=== PATIENT | male | born 1935 | race Caucasian/White ===

== ENCOUNTER 2017-12-07 08:00 | Outpatient (CLI) | payer MEDICARE, OTHER ==
[2017-12-07 17:35] LABS: BASOPHILS # (AUTO) 0.1 10^3/uL (0.0-0.1); BASOPHILS % (AUTO) 0.8 %; EOSINOPHILS # (AUTO) 0.2 10^3/uL (0.0-0.7); EOSINOPHILS % (AUTO) 2.8 %; HGB - HEMOGLOBIN 14.7 g/dL (14.0-18.0); LYMPHOCYTES # (AUTO) 1.5 10^3/uL (1.5-3.5); MEAN CORPUSCULAR HEMOGLOBIN 33.9 pg (27.0-31.0); MEAN CORPUSCULAR HGB CONC 33.3 g/dL (32.0-36.0); MEAN CORPUSCULAR VOLUME 101.7 fL (80.0-94.0); MONOCYTES # (AUTO) 0.5 10^3/uL (0.0-1.0); MONOCYTES % (AUTO) 7.1 %; NEUTROPHILS # (AUTO) 5.2 10^3/uL (1.5-6.6); NEUTROPHILS % (AUTO) 69.3 %; PLT - PLATELET COUNT 186 10^3/uL (130-450); RED BLOOD COUNT 4.35 10^6/uL (4.70-6.10); RED CELL DISTRIBUTION WIDTH 13.6 % (12.0-15.0); WHITE BLOOD COUNT 7.5 x10^3/uL (4.8-10.8)
[2017-12-07 18:02] LABS: ALBUMIN/GLOBULIN RATIO 1.3 (1.0-2.2); CALCIUM 8.9 mg/dL (8.5-10.3); CREATININE 0.6 mg/dL (0.6-1.2)
== END 2017-12-07 08:01 | disposition home or self-care (01) ==
LOC: LAB.F 08:00
PROVIDERS: ATTEND Specialist
DX: I10 Essential (primary) hypertension (principal); E78.00 Pure hypercholesterolemia, unspecified; E03.9 Hypothyroidism, unspecified
CPT/HCPCS: 36415; 80053; 84443; 85025

== ENCOUNTER 2018-08-02 11:46 | Emergency (ER) | payer MEDICARE, OTHER ==
--- NOTE | 2018-08-02 12:44 | XRAY Report ---
Reason: cough Procedure Date: 08/02/2018 Accession Number: [id number] / [id number] Procedure: XR - Chest 2 View X-Ray CPT Code: 62155 FULL RESULT: EXAM: CHEST RADIOGRAPHY EXAM DATE: 08/02/2018 12:32 PM. CLINICAL HISTORY: Cough, congestion. Fatigue. COMPARISON: None. TECHNIQUE: 2 views. FINDINGS: Lungs/Pleura: Extensive bilateral bronchial thickening. No dense consolidation. No pleural effusions. No pneumothorax. Mediastinum: Heart is enlarged. Aorta is mildly tortuous. Aortic atherosclerosis. Other: Degenerative changes of the thoracic spine and both shoulders. IMPRESSION: 1. Extensive bilateral bronchial thickening typically seen with bronchitis. No dense consolidation. RADIA
[2018-08-02 13:17] LABS: BASOPHILS % (AUTO) 0.5 %; EOSINOPHILS % (AUTO) 0.3 %; HGB - HEMOGLOBIN 13.7 g/dL (14.0-18.0); LYMPHOCYTES # (AUTO) 1.1 10^3/uL (1.5-3.5); LYMPHOCYTES % (AUTO) 15.1 %; MEAN CORPUSCULAR HEMOGLOBIN 34.5 pg (27.0-31.0); MEAN CORPUSCULAR HGB CONC 35.3 g/dL (32.0-36.0); MEAN CORPUSCULAR VOLUME 97.9 fL (80.0-94.0); MEAN PLATELET VOLUME 8.4 fL (7.4-11.4); MONOCYTES # (AUTO) 0.7 10^3/uL (0.0-1.0); MONOCYTES % (AUTO) 10.1 %; NEUTROPHILS # (AUTO) 5.4 10^3/uL (1.5-6.6); PLT - PLATELET COUNT 204 10^3/uL (130-450); RED BLOOD COUNT 3.97 10^6/uL (4.70-6.10); RED CELL DISTRIBUTION WIDTH 13.6 % (12.0-15.0); WHITE BLOOD COUNT 7.3 x10^3/uL (4.8-10.8)
[2018-08-02 13:29] LABS: ALBUMIN 3.7 g/dL (3.2-5.5); ALBUMIN/GLOBULIN RATIO 1.2 (1.0-2.2); BILIRUBIN,TOTAL 0.7 mg/dL (0.2-1.0); CALCIUM 8.5 mg/dL (8.5-10.3); CREATININE 0.4 mg/dL (0.6-1.2); TOTAL PROTEIN 6.8 g/dL (6.7-8.2)
[2018-08-02 14:25] VITALS: BP 138/70
[2018-08-02 15:34] LABS: BILIRUBIN,URINE NEGATIVE (NEGATIVE); GLUCOSE, URINE (UA) NEGATIVE (NEGATIVE); KETONES,URINE (UA) NEGATIVE (NEGATIVE); LEUKOCYTE ESTERASE, URINE NEGATIVE (NEGATIVE); NITRITE,URINE NEGATIVE (NEGATIVE); OCCULT BLOOD,URINE NEGATIVE (NEGATIVE); PH,URINE 6.5 PH (5.0-7.5); PROTEIN,URINE NEGATIVE (NEGATIVE); UROBILINOGEN,URINE 0.2 (NORMAL) E.U./dL (NORMAL)
[2018-08-02 15:36] LABS: CLARITY,URINE CLEAR (CLEAR)
[2018-08-02] MEDS ORDERED: IPRATROPIUM/ALBUTEROL 3 ML NEB INH STA (15:40)
[2018-08-02] MEDS ORDERED: DEXAMETHASONE 10 MG/ML VIAL PO STA (15:40)
[2018-08-02] MEDS ORDERED: BENZONATATE 100 MG CAPSULE PO STA (15:40)
--- NOTE | 2018-08-02 15:54 | ED Physician Documentation ---
PD HPI URI - Stated complaint Stated Complaint: CONGESTION/DIZZY/DISORIENTED - Chief complaint Chief Complaint: Resp - History obtained from History obtained from: Patient, Family - History of Present Illness Timing - onset: How many weeks ago (1) Timing duration: Weeks (1) Timing details: Gradual onset Pain level max: 3 Pain level now: 3 Associated symptoms: Chills, Nasal congestion, Rhinorrhea, Dry cough, Dyspnea. No: Fever, Hemoptysis Contributing factors: Sick contact, COPD / asthma. No: Immunocompromised, Unimmunized Improves by: Rest Worsened by: Activity, Breathing Recently seen: Not recently seen Review of Systems Constitutional: denies: Fever Respiratory: reports: Cough GI: denies: Nausea, Vomiting Skin: denies: Rash Musculoskeletal: denies: Neck pain, Back pain Neurologic: denies: Headache PD PAST MEDICAL HISTORY - Past Medical History Cardiovascular: High cholesterol Respiratory: Asthma Neuro: None Endocrine/Autoimmune: HyPOthyroidism : Retention HEENT: None Musculoskeletal: Gout - Past Surgical History Past Surgical History: No HEENT: Cataracts - Present Medications Home Medications: Ambulatory Orders Medication Instructions Recorded Confirmed Albuterol Sulfate [Proair 90 mcg IH BID 08/02/18 08/02/18 Respiclick] Allopurinol 300 mg PO DAILY 08/02/18 08/02/18 Atorvastatin Calcium 20 mg PO DAILY 08/02/18 08/02/18 Benzonatate [Tessalon Perle] 100 - 200 mg PO TID PRN #30 capsule 08/02/18 Levothyroxine [Synthroid] 1 tab PO DAILY 08/02/18 08/02/18 Metoprolol Tartrate 1 tab PO DAILY 08/02/18 08/02/18 Rivaroxaban [Xarelto] 1 each PO DAILY 08/02/18 08/02/18 Sertraline [Zoloft] 50 mg PO DAILY 08/02/18 08/02/18 Sildenafil Citrate [Viagra] 100 mg PO DAILY 08/02/18 08/02/18 Tamsulosin [Flomax] 0.4 mg PO ONCE 08/02/18 08/02/18 diazePAM [Diazepam] 5 mg PO DAILY 08/02/18 08/02/18 predniSONE [Deltasone] 10 mg PO [id number] #42 tab 08/02/18 - Allergies Allergies/Adverse Reactions: Allergies Allergy/AdvReac Type Severity Reaction Status Date / Time No Known Drug Allergies Allergy Verified 08/02/18 12:10 - Social History Does the pt smoke?: No Smoking Status: Never smoker - Immunizations Immunizations are current?: Yes PD ED PE NORMAL - Vitals Vital signs reviewed: Yes - General General: Alert and oriented X 3, No acute distress - HEENT HEENT: Ears normal, Moist mucous membranes, Pharynx benign - Neck Neck: Supple, no meningeal sign - Cardiac Cardiac: RRR - Respiratory Respiratory: No respiratory distress, Other (Diffuse wheezing and rhonchi bilaterally) - Abdomen Abdomen: Soft, Non tender, Non distended - Back Back: No spinal TTP - Derm Derm: Warm and dry, No rash - Extremities Extremities: No edema, No calf tenderness / cord - Neuro Neuro: Alert and oriented X 3 - Psych Psych: Normal mood, Normal affect Results - Vitals Vitals: Vital Signs - 24 hr 08/02/18 08/02/18 08/02/18 12:08 14:23 15:53 Temperature 36.5 C 36.5 C Heart Rate 70 60 70 Respiratory 20 18 18 Rate Blood Pressure 150/68 H 138/70 H O2 Saturation 100 98 Oxygen O2 Source Room air - Labs Labs: Laboratory Tests 08/02/18 08/02/18 08/02/18 13:06 13:06 15:20 WBC 7.3 RBC 3.97 L Hgb 13.7 L Hct 38.9 L MCV 97.9 H MCH 34.5 H MCHC 35.3 RDW 13.6 Plt Count 204 MPV 8.4 Neut # (Auto) 5.4 Lymph # (Auto) 1.1 L [place] # (Auto) 0.7 Eos # (Auto) 0.0 Baso # (Auto) 0.0 Absolute Nucleated RBC 0.00 Nucleated RBC % 0.0 Sodium 131 L Potassium 3.4 L Chloride 98 L Carbon Dioxide 26 Anion Gap 7.0 BUN 11 Creatinine 0.4 L Estimated GFR (MDRD) 206 Glucose 120 H Calcium 8.5 Total Bilirubin 0.7 AST 31 ALT 31 Alkaline Phosphatase 71 Total Protein 6.8 Albumin 3.7 Globulin 3.1 Albumin/Globulin Ratio 1.2 Lipase 57 H Urine Color YELLOW Urine Clarity CLEAR Urine pH 6.5 Ur Specific [place] 1.010 Urine Protein NEGATIVE Urine Glucose (UA) NEGATIVE Urine Ketones NEGATIVE Urine Occult Blood NEGATIVE Urine Nitrite NEGATIVE Urine Bilirubin NEGATIVE Urine Urobilinogen 0.2 (NORMAL) Ur Leukocyte Esterase NEGATIVE Ur Microscopic Review NOT INDICATED Urine Culture Comments NOT INDICATED - Rads (name of study) cxr Radiology: Prelim report reviewed, EMP read contemporaneously, See rad report (Extensive bilateral bronchial thickening typically seen with bronchitis. No dense consolidation. ) PD MEDICAL DECISION MAKING - ED course Complexity details: reviewed results, re-evaluated patient, considered differential, d/w patient, d/w family ED course: 83-year-old male with what appears to be a viral upper respiratory infection. He is well-appearing, nontoxic. Afebrile. We will treat with nebulizer and steroids for home. He did take an old Z-Jameel, but this did not change his symptoms. Possible influenza? No hypoxia. No respiratory distress. Patient and family counseled regarding signs and symptoms for which I believe and urgent re-evaluation would be necessary. Patient with good understanding of and agreement to plan and is comfortable going home at this time This document was made in part using voice recognition software. While efforts are made to proofread this document, sound alike and grammatical errors may occur. Departure - Departure Disposition: 01 Home, Self Care Clinical Impression: Upper respiratory tract infection Qualifiers: URI type: unspecified viral URI Qualified Code(s): J06.9 - Acute upper respira tory infection, unspecified Condition: Good Instructions: ED URI Viral W Wheezing Follow-Up: ANASTACIA GAMEZ [Primary Care Provider] - Within 1 week Prescriptions: Benzonatate [Tessalon Perle] 100 - 200 mg PO TID PRN #30 capsule PRN Reason: Cough predniSONE [Deltasone] 10 mg PO [id number] #42 tab Comments: Drink plenty of fluids at home. Return if you worsen. You need to use her inhaler likely every 3-4 hours along with the spacer attached. Rest over the next few days. There is no pneumonia on your chest x-ray today Discharge Date/Time: 08/02/18 16:35
== END 2018-08-02 16:35 | disposition home or self-care (01) ==
LOC: ED 11:46
DX: J06.9 Acute upper respiratory infection, unspecified (principal); R06.2 Wheezing; I10 Essential (primary) hypertension; E78.00 Pure hypercholesterolemia, unspecified
CPT/HCPCS: 36415; 71046; 80053; 81003; 83690; 85025; 94640; 99283; A9270; 81001; 87086

== ENCOUNTER 2018-10-02 14:21 | Emergency (ER) | payer MEDICARE, OTHER ==
[2018-10-02 14:30] VITALS: BP 157/77
[2018-10-02 14:45] LABS: BILIRUBIN,URINE NEGATIVE (NEGATIVE); GLUCOSE, URINE (UA) NEGATIVE (NEGATIVE); KETONES,URINE (UA) NEGATIVE (NEGATIVE); LEUKOCYTE ESTERASE, URINE SMALL (NEGATIVE); NITRITE,URINE NEGATIVE (NEGATIVE); OCCULT BLOOD,URINE LARGE (NEGATIVE); PROTEIN,URINE 100 mg/dL (NEGATIVE); UROBILINOGEN,URINE 0.2 (NORMAL) E.U./dL (NORMAL)
[2018-10-02 14:46] LABS: CLARITY,URINE CLOUDY (CLEAR)
--- NOTE | 2018-10-02 14:48 | ED Physician Documentation ---
PD HPI MALE - Stated complaint Stated Complaint: MALE - Chief complaint Chief Complaint: Abd Pain - History obtained from History obtained from: Patient - History of Present Illness Timing - onset: Other (3 mos urinary urgency now with 3 days of dysuria and pink tinged with small clot this AM. hAS h/o BPH on flomax.) Review of Systems Constitutional: denies: Fever, Chills, Myalgias Throat: reports: Reviewed and negative Cardiac: reports: Reviewed and negative Respiratory: reports: Reviewed and negative PD PAST MEDICAL HISTORY - Past Medical History Cardiovascular: High cholesterol Respiratory: Asthma Neuro: None Endocrine/Autoimmune: HyPOthyroidism : Retention HEENT: None Musculoskeletal: Gout - Past Surgical History Past Surgical History: No HEENT: Cataracts - Present Medications Home Medications: Ambulatory Orders Medication Instructions Recorded Confirmed Albuterol Sulfate [Proair 90 mcg IH BID 08/02/18 08/02/18 Respiclick] Allopurinol 300 mg PO DAILY 08/02/18 08/02/18 Atorvastatin Calcium 20 mg PO DAILY 08/02/18 08/02/18 Benzonatate [Tessalon Perle] 100 - 200 mg PO TID PRN #30 capsule 08/02/18 Levothyroxine [Synthroid] 1 tab PO DAILY 08/02/18 08/02/18 Metoprolol Tartrate 1 tab PO DAILY 08/02/18 08/02/18 Rivaroxaban [Xarelto] 1 each PO DAILY 08/02/18 08/02/18 Sertraline [Zoloft] 50 mg PO DAILY 08/02/18 08/02/18 Sildenafil Citrate [Viagra] 100 mg PO DAILY 08/02/18 08/02/18 Tamsulosin [Flomax] 0.4 mg PO ONCE 08/02/18 08/02/18 diazePAM [Diazepam] 5 mg PO DAILY 08/02/18 08/02/18 predniSONE [Deltasone] 10 mg PO [id number] #42 tab 08/02/18 Ciprofloxacin HCl [Cipro] 500 mg PO BID #20 tablet 10/02/18 - Allergies Allergies/Adverse Reactions: Allergies Allergy/AdvReac Type Severity Reaction Status Date / Time No Known Drug Allergies Allergy Verified 10/02/18 14:30 - Social History Does the pt smoke?: No Smoking Status: Never smoker - Immunizations Immunizations are current?: Yes PD ED PE NORMAL - Vitals Vital signs reviewed: Yes - General General: Alert and oriented X 3, No acute distress - Male Male : Other (Bladder scan done at bedside after urination, 40 mL's.) - Back Back: No CVA TTP, No spinal TTP - Derm Derm: Normal color, Warm and dry - Extremities Extremities: No edema, No calf tenderness / cord Results - Vitals Vitals: Vital Signs - 24 hr 10/02/18 14:28 Temperature 36.3 C L Heart Rate 54 L Respiratory 10 L Rate Blood Pressure 157/77 H O2 Saturation 97 Oxygen O2 Source Room air - Labs Labs: Laboratory Tests 10/02/18 14:40 Urine Color YELLOW Urine Clarity CLOUDY Urine pH 6.0 Ur Specific [place] 1.010 Urine Protein 100 H Urine Glucose (UA) NEGATIVE Urine Ketones NEGATIVE Urine Occult Blood LARGE H Urine Nitrite NEGATIVE Urine Bilirubin NEGATIVE Urine Urobilinogen 0.2 (NORMAL) Ur Leukocyte Esterase SMALL H Urine RBC TNTC H Urine WBC >25 H Ur Squamous Epith Cells NONE SEEN Urine Bacteria Rare Ur Microscopic Review INDICATED Urine Culture Comments INDICATED PD MEDICAL DECISION MAKING - ED course ED course: 83-year-old gentleman with history of BPH presents with symptoms of cystitis confirmed on urinalysis. Bladder scan denotes no need for Child[place] catheter at this point, he has an insignificant postvoid residual. Departure - Departure Disposition: 01 Home, Self Care Clinical Impression: Cystitis Condition: Good Record reviewed to determine appropriate education?: Yes Instructions: ED UTI Cystitis Male Prescriptions: Ciprofloxacin HCl [Cipro] 500 mg PO BID #20 tablet Comments: We will culture your urine, the results should be done in 48-72 hours. If an a ntibiotic change is necessary we will call you. Return if worse in the meantime, especially if you develop increasing flank pain, fevers, or cannot keep down the medication. Follow-up with your urologist in about a week as scheduled.
[2018-10-02 14:55] LABS: BACTERIA,URINE Rare /HPF (None Seen); RBC,URINE TNTC /HPF (0-5); SQUAMOUS EPITHELIAL CELL,UR NONE SEEN (<= Few)
== END 2018-10-02 15:10 | disposition home or self-care (01) ==
LOC: ED 14:21
DX: N30.90 Cystitis, unspecified without hematuria (principal); E03.9 Hypothyroidism, unspecified; E78.00 Pure hypercholesterolemia, unspecified
CPT/HCPCS: 81001; 81003; 87077; 87086; 87181; 99283

== ENCOUNTER 2019-08-03 12:03 | Emergency (ER) | payer MEDICARE, OTHER ==
[2019-08-03 12:18] VITALS: BP 134/68
[2019-08-03] MEDS ORDERED: ALBUTEROL NEB 2.5 MG/3 ML INH STA (12:29)
--- NOTE | 2019-08-03 12:32 | ED Physician Documentation ---
PD HPI HEENT - Stated complaint Stated Complaint: FO IN THROAT/COUGH - Chief complaint Chief Complaint: Resp - History obtained from History obtained from: Patient (He has had a minimally productive cough worse at night for about 3 to 4 weeks, mild shortness of breath with it. No fevers. Then he coughed so hard this morning that he thinks he inhaled his lower dental bridge and feels like it stuck in his throat.) Review of Systems Constitutional: denies: Fever, Chills Throat: denies: Dental pain / toothache, Sore throat Cardiac: denies: Chest pain / pressure, Palpitations Respiratory: reports: Cough. denies: Dyspnea PD PAST MEDICAL HISTORY - Past Medical History Cardiovascular: High cholesterol Respiratory: Asthma Neuro: None Endocrine/Autoimmune: HyPOthyroidism : Retention HEENT: None Musculoskeletal: Gout - Past Surgical History Past Surgical History: No HEENT: Cataracts - Present Medications Home Medications: Ambulatory Orders Medication Instructions Recorded Confirmed Albuterol Sulfate [Proair 90 mcg IH BID 08/02/18 08/02/18 Respiclick] Atorvastatin Calcium 20 mg PO DAILY 08/02/18 08/02/18 Benzonatate [Tessalon Perle] 100 - 200 mg PO TID PRN #30 capsule 08/02/18 Levothyroxine [Synthroid] 1 tab PO DAILY 08/02/18 08/02/18 Metoprolol Tartrate 1 tab PO DAILY 08/02/18 08/02/18 Rivaroxaban [Xarelto] 1 each PO DAILY 08/02/18 08/02/18 Sertraline [Zoloft] 50 mg PO DAILY 08/02/18 08/02/18 Sildenafil Citrate [Viagra] 100 mg PO DAILY 08/02/18 08/02/18 Tamsulosin [Flomax] 0.4 mg PO ONCE 08/02/18 08/02/18 allopurinoL [Allopurinol] 300 mg PO DAILY 08/02/18 08/02/18 diazePAM [Diazepam] 5 mg PO DAILY 08/02/18 08/02/18 predniSONE [Deltasone] 10 mg PO [id number] #42 tab 08/02/18 Ciprofloxacin HCl [Cipro] 500 mg PO BID #20 tablet 10/02/18 Albuterol Sulf [Ventolin Hfa 1 - 2 puffs INH Q4HR PRN #1 inhaler 08/03/19 Inhaler] Azithromycin [Zithromax] 1 tab PO DAILY #6 tablet 08/03/19 - Allergies Allergies/Adverse Reactions: Allergies Allergy/AdvReac Type Severity Reaction Status Date / Time No Known Drug Allergies Allergy Verified 08/03/19 12:18 - Social History Does the pt smoke?: No Smoking Status: Never smoker - Immunizations Immunizations are current?: Yes PD ED PE NORMAL - Vitals Vital signs reviewed: Yes - General General: Alert and oriented X 3, No acute distress - HEENT HEENT: Pharynx benign (No visible foreign body) - Neck Neck: Supple, no meningeal sign, No bony TTP - Cardiac Cardiac: RRR, No murmur - Respiratory Respiratory: No respiratory distress, Other (Rhonchorous and wheezy throughout) - Abdomen Abdomen: Non tender - Derm Derm: No rash - Neuro Neuro: Alert and oriented X 3, Normal speech Results - Vitals Vitals: Vital Signs - 24 hr 08/03/19 08/03/19 08/03/19 12:15 12:18 12:44 Temperature 36.2 C L Heart Rate 87 87 74 Respiratory 18 18 18 Rate Blood Pressure 134/68 H 134/68 H O2 Saturation 99 99 Oxygen O2 Source Room air PD MEDICAL DECISION MAKING - ED course ED course: 84-year-old gentleman with bronchitis and potentially an inhaled dental bridge in his throat. Nothing that matches that on x-ray but he was persistent that he could not eat or drink or swallow and as such I arranged to have him sent up to [facility] accepted by Kimberly Feng and I also arranged for Dr. Self to see him when he gets there. They will just call Dr. Self in to perform laryngoscopy. Departure - Departure Disposition: 02 Transfer Acute Care Hosp Clinical Impression: Bronchitis, Foreign body sensation in throat Condition: Good Record reviewed to determine appropriate education?: Yes Instructions: ED Bronchitis Asthmatic Prescriptions: Albuterol Sulf [Ventolin Hfa Inhaler] 1 - 2 puffs INH Q4HR PRN #1 inhaler PRN Reason: Shortness Of Air/Wheezing Azithromycin [Zithromax] 1 tab PO DAILY #6 tablet Comments: The x-ray really does not show anything consistent with a dental bridge. The radiologist made note that there might be a 2 mm foreign body but this is too small to match what you are describing. The radiologist also felt that it could just be normal calcification too. If you still have symptoms in a few days you should follow-up with an ENT for consideration of nasolaryngoscopy. The closest is in [facility], the phone number is [phone].
--- NOTE | 2019-08-03 13:24 | XRAY Report ---
Reason: poss swallowed FB Procedure Date: 08/03/2019 Accession Number: [id number] / [id number] Procedure: XR - Neck Soft Tissue CPT Code: Final Report FULL RESULT: EXAM: SOFT TISSUE NECK RADIOGRAPHY EXAM DATE: 08/03/2019 01:14 PM. CLINICAL HISTORY: Poss swallowed FB. COMPARISONS: None. TECHNIQUE: 2 views. FINDINGS: Soft Tissues: A tiny 2 mm radiopaque density in prevertebral soft tissues at C7 level, posterior to the trachea. Likely cartilaginous calcification, however a tiny foreign body to be considered in appropriate setting. No prevertebral soft tissue swelling. The epiglottis and aryepiglottic folds are unremarkable. No tonsillar or adenoidal enlargement. No radiopaque foreign body. Regional Skeleton: Unremarkable for age. Other: The visualized lung apices are clear. IMPRESSION: A tiny 2 mm radiopaque density in prevertebral soft tissues at C7 level, posterior to trachea. Likely cartilaginous calcification, however a tiny foreign body to be considered in appropriate setting. RADIA
--- NOTE | 2019-08-03 13:25 | XRAY Report ---
Reason: cough, poss swallowed fb Procedure Date: 08/03/2019 Accession Number: [id number] / [id number] Procedure: XR - Chest 2 View X-Ray CPT Code: 61287 Final Report FULL RESULT: EXAM: CHEST RADIOGRAPHY EXAM DATE: 08/03/2019 01:14 PM. CLINICAL HISTORY: Cough, poss swallowed fb. COMPARISON: CHEST 2 VIEW 08/02/2018 12:24 PM. TECHNIQUE: 2 views. FINDINGS: Lungs/Pleura: No focal opacities evident. No pleural effusion. No pneumothorax. Normal volumes. Mediastinum: Heart and mediastinal contours are unremarkable. Other: None. IMPRESSION: No radiopaque foreign body in the field. Bibasilar unchanged interstitial opacities are likely age-related. RADIA
== END 2019-08-03 14:31 | disposition short-term general hospital (02) ==
LOC: ED 12:03
DX: J40 Bronchitis, not specified as acute or chronic (principal); R09.89 Other specified symptoms and signs involving the circulatory and respiratory systems
CPT/HCPCS: 70360; 71046; 94640; 99284; 99285

== ENCOUNTER 2021-08-25 11:36 | Outpatient (CLI) | payer MEDICARE, OTHER ==
[2021-08-25 15:27] LABS: CREATININE 0.7 mg/dL (0.6-1.2)
== END 2021-08-25 11:37 | disposition home or self-care (01) ==
LOC: LAB.S 11:36
PROVIDERS: ATTEND Nurse Practitioner Family
DX: I48.20 Chronic atrial fibrillation, unspecified (principal)
CPT/HCPCS: 36415; 82565

== ENCOUNTER 2021-09-16 12:10 | Outpatient (CLI) | payer MEDICARE, OTHER ==
[2021-09-16 15:15] LABS: ALBUMIN 4.8 g/dL (3.2-5.5); ALBUMIN/GLOBULIN RATIO 1.8 (1.0-2.2); ALKALINE PHOSPHATASE 57 IU/L (42-121); ALT ALANINE AMINOTRANSFERASE 25 IU/L (10-60); AST ASPARTATE AMINOTRANSFERASE 24 IU/L (10-42); BUN - BLOOD UREA NITROGEN 13 mg/dL (6-20); CALCIUM 9.4 mg/dL (8.5-10.3); CARBON DIOXIDE - CO2 26 mmol/L (21-32); CHLORIDE 102 mmol/L (101-111); CHOL/HDL RATIO 2.6 (<5.0); CHOLESTEROL 177 mg/dL; CREATININE 0.6 mg/dL (0.6-1.2); GFR - MDRD 128 (>89); GLUCOSE 118 mg/dL (70-100); HDL CHOLESTEROL 67 mg/dL; LDL CHOLESTEROL,CALCULATED 97 mg/dL; LDL/HDL RATIO 1.4 (<3.6); POTASSIUM 4.5 mmol/L (3.5-5.0); SODIUM 137 mmol/L (135-145); TOTAL PROTEIN 7.5 g/dL (6.7-8.2); TRIGLYCERIDES 64 mg/dL; VLDL CHOLESTEROL 13 mg/dL
[2021-09-16 15:22] LABS: BASOPHILS % (AUTO) 0.4 %; EOSINOPHILS # (AUTO) 0.2 10^3/uL (0.0-0.7); EOSINOPHILS % (AUTO) 1.6 %; HCT - HEMATOCRIT 45.3 % (42.0-52.0); HGB - HEMOGLOBIN 15.4 g/dL (14.0-18.0); LYMPHOCYTES # (AUTO) 1.7 10^3/uL (1.5-3.5); MEAN PLATELET VOLUME 11.9 fL (7.4-11.4); MONOCYTES # (AUTO) 0.6 10^3/uL (0.0-1.0); MONOCYTES % (AUTO) 5.9 %; NEUTROPHILS # (AUTO) 6.9 10^3/uL (1.5-6.6); NEUTROPHILS % (AUTO) 73.8 %; PLT - PLATELET COUNT 182 10^3/uL (130-450); RED BLOOD COUNT 4.53 10^6/uL (4.70-6.10); RED CELL DISTRIBUTION WIDTH 12.3 % (12.0-15.0); WHITE BLOOD COUNT 9.3 x10^3/uL (4.8-10.8)
== END 2021-09-16 12:11 | disposition home or self-care (01) ==
LOC: LAB.S 12:10
PROVIDERS: ATTEND Student in an Organized Health Care Education/Training Program
DX: Z79.899 Other long term (current) drug therapy (principal)
CPT/HCPCS: 36415; 80053; 80061; 83721; 84443; 85025

== ENCOUNTER 2022-03-15 13:40 | Outpatient (CLI) | payer MEDICARE, OTHER ==
[2022-03-15 19:54] LABS: CREATININE 0.6 mg/dL (0.6-1.2)
== END 2022-03-15 13:41 | disposition home or self-care (01) ==
LOC: LAB.S 13:40
PROVIDERS: ATTEND Nurse Practitioner Family
DX: I48.20 Chronic atrial fibrillation, unspecified (principal)
CPT/HCPCS: 36415; 82565

== ENCOUNTER 2023-08-10 15:01 | Outpatient (CLI) | payer MEDICARE, OTHER ==
[2023-08-10 20:13] LABS: BASOPHILS # (AUTO) 0.1 10^3/uL (0.0-0.1); BASOPHILS % (AUTO) 0.5 %; EOSINOPHILS # (AUTO) 0.1 10^3/uL (0.0-0.7); EOSINOPHILS % (AUTO) 0.9 %; HCT - HEMATOCRIT 41.9 % (42.0-52.0); HGB - HEMOGLOBIN 13.4 g/dL (14.0-18.0); LYMPHOCYTES # (AUTO) 1.5 10^3/uL (1.5-3.5); LYMPHOCYTES % (AUTO) 16.3 %; MEAN CORPUSCULAR HEMOGLOBIN 32.5 pg (27.0-31.0); MEAN CORPUSCULAR VOLUME 101.7 fL (80.0-94.0); MEAN PLATELET VOLUME 11.6 fL (7.4-11.4); MONOCYTES # (AUTO) 0.6 10^3/uL (0.0-1.0); MONOCYTES % (AUTO) 6.4 %; NEUTROPHILS # (AUTO) 6.9 10^3/uL (1.5-6.6); NEUTROPHILS % (AUTO) 75.7 %; PLT - PLATELET COUNT 201 10^3/uL (130-450); RED BLOOD COUNT 4.12 10^6/uL (4.70-6.10); RED CELL DISTRIBUTION WIDTH 13.2 % (12.0-15.0); WHITE BLOOD COUNT 9.2 x10^3/uL (4.8-10.8)
[2023-08-10 20:17] LABS: BILIRUBIN,URINE NEGATIVE (NEGATIVE); GLUCOSE, URINE (UA) NEGATIVE (NEGATIVE); KETONES,URINE (UA) NEGATIVE (NEGATIVE); LEUKOCYTE ESTERASE, URINE NEGATIVE (NEGATIVE); NITRITE,URINE NEGATIVE (NEGATIVE); OCCULT BLOOD,URINE NEGATIVE (NEGATIVE); PROTEIN,URINE NEGATIVE (NEGATIVE); UROBILINOGEN,URINE 0.2 (NORMAL) E.U./dL (NORMAL)
[2023-08-10 20:30] LABS: CALCIUM 9.3 mg/dL (8.5-10.3); CREATININE 0.6 mg/dL (0.6-1.3); POTASSIUM 4.2 mmol/L (3.5-4.5)
[2023-08-10 20:44] LABS: ESTIMATED AVERAGE GLUCOSE 123 mg/dL (70-100); HEMOGLOBIN A1c% 5.9 % (4.27-6.07)
[2023-08-10 21:23] LABS: BACTERIA,URINE None Seen /HPF (None Seen); CLARITY,URINE CLEAR (CLEAR); RBC,URINE 0-5 /HPF (0-5); SQUAMOUS EPITHELIAL CELL,UR FEW Squamous (<= Few); WBC,URINE 0-3 /HPF (0-3)
== END 2023-08-10 15:02 | disposition home or self-care (01) ==
LOC: LAB.S 15:01
PROVIDERS: ATTEND Orthopaedic Surgery
DX: Z01.812 Encounter for preprocedural laboratory examination (principal); R73.9 Hyperglycemia, unspecified; N39.0 Urinary tract infection, site not specified
CPT/HCPCS: 36415; 80048; 81001; 83036; 85025; 87086

== ENCOUNTER 2023-08-22 14:03 | Outpatient (CLI) | payer MEDICARE, OTHER | END 2023-08-22 14:04 | disposition home or self-care (01) | LOC: RT 14:03 | PROVIDERS: ATTEND Orthopaedic Surgery | DX: Z01.818 Encounter for other preprocedural examination (principal) | CPT/HCPCS: 93005 ==

== ENCOUNTER 2024-03-15 08:00 | Outpatient (CLI) | payer MEDICARE, OTHER ==
--- NOTE | 2024-03-15 17:59 | XRAY Report ---
PROCEDURE: Knee 3V LT INDICATIONS: LEFT KNEE PAIN TECHNIQUE: 3 views of the knee(s) were acquired. COMPARISON: None. FINDINGS: No acute fracture or dislocation. Mild tricompartmental osteoarthritis, most conspicuous at the [place] lofemoral compartment. Chondrocalcinosis in the medial/lateral/posterior joint capsule compartments. Heterotopic ossification at the anterior aspect of the patellar body with overlying soft tissue edema . Thickening of the patellar tendon contour. Vascular calcifications. IMPRESSION: 1.No acute fracture or dislocation of the left knee. 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 3.Mild prepatellar edema, which can be seen with bursitis, hematoma, or cellulitis. Reviewed by: Shahbaz Duque MD on 03/15/2024 5:57 PM PDT Approved by: Shahbaz Duque MD on 03/15/2024 5:57 PM PDT Station ID: [id number]
== END 2024-03-15 23:59 | disposition home or self-care (01) ==
LOC: DI.S 08:00
PROVIDERS: ATTEND Physician Assistant
DX: M25.562 Pain in left knee (principal); R60.0 Localized edema

== ENCOUNTER 2024-08-15 15:43 | Inpatient (IN) ==
--- NOTE | 2024-08-15 16:16 | ED Physician Documentation ---
History of Present Illness Stated complaint Stated Complaint: WEAKNESS/LT SIDE PX Chief complaint Chief Complaint: Neuro History obtained from History obtained from: Patient Additonal information Additional information: He had a fall about a week ago. He was seen here by my partner and had CT imaging of the head, cervical and thoracic spines without acute findings. Since then he has developed extensive bruising around the back, abdomen and groin and is trying to feel weak and dizzy. He has minimal pain. Meds/Allgy Home Medications Ambulatory Orders Medication Instructions Recorded Confirmed albuterol sulfate 90 mcg/actuation 90 mcg IH BID 08/02/18 04/12/24 breath activated powder inhaler (ProAir RespiClick) allopurinol 300 mg tablet 300 mg PO DAILY 08/02/18 04/12/24 atorvastatin 20 mg tablet 20 mg PO DAILY 08/02/18 04/12/24 benzonatate 100 mg capsule 100 - 200 mg (1 - 2 x 100 mg) PO 08/02/18 04/12/24 (Tesdenita Boles) TID PRN Cough #30 caps diazepam 5 mg tablet 5 mg PO DAILY 08/02/18 04/12/24 levothyroxine 100 mcg tablet 1 tab PO DAILY 08/02/18 04/12/24 metoprolol tartrate 50 mg tablet 1 tab PO DAILY 08/02/18 04/12/24 prednisone 10 mg tablet 10 mg PO [id number] #42 tabs 08/02/18 04/12/24 rivaroxaban 15 mg (42)-20 mg (9) 1 ea PO DAILY 08/02/18 04/12/24 tablets in a starter pack (Xarelto DVT-PE Treatment 30-Day Starter) sertraline 50 mg tablet 50 mg PO DAILY 08/02/18 04/12/24 sildenafil 100 mg tablet (Viagra) 100 mg PO DAILY 08/02/18 04/12/24 tamsulosin 0.4 mg capsule 0.4 mg PO ONCE 08/02/18 04/12/24 albuterol sulfate 90 mcg/actuation 1 - 2 puff inhalation Q4HR PRN 08/03/19 04/12/24 aerosol inhaler (Ventolin HFA) Shortness Of Air/Wheezing ##1 azithromycin 250 mg tablet 1 tab PO DAILY #6 tabs 08/03/19 04/12/24 Allergies Allergies Allergy/AdvReac Type Severity Reaction Status Date / Time No Known Drug Allergies Allergy Verified 08/15/24 16:20 [facility] Active Problems All Active Problems (Updated 08/15/24 @ 18:08 by Bartolo Chris MD) Lymphadenopathy, thoracic (Acute) Thyroid nodule (Acute) Acute blood loss anemia (ABLA) (Acute) Fracture, ribs (Acute) Acute hyponatremia (Acute) Anticoagulant long-term use (Acute) Acute midline thoracic back pain (Acute) Abrasion of scalp (Acute) Fall from slip, trip, or stumble (Acute) Encounter for removal of sutures (Acute) Medical History Medical History (Updated 08/15/24 @ 18:08 by Bartolo Chris MD) Atrial fibrillation Heart murmur Social History Social History (Updated 08/15/24 @ 16:30 by Chloe Salas RN) Smoking Status: Never smoker Living arrangement: At home Marital Status: Living Condition: With spouse/s.o. Relationship: Do you feel safe in your home environment?: Yes Suffered physical, verbal, emotional, or financial abuse?: No ETOH Use: Wine Frequency: Daily Number of Amount/day: 2 ETOH Use Details: "a couple of glasses of wine a night and occasional scotch" Exam Constitutional He appears quite pale, potentially jaundiced HENMT oropharynx normal Respiratory normal respiratory effort and clear to auscultation bilaterally Cardiovascular normal heart rate noted Gastrointestinal abdomen normal to inspection and abdomen soft to palpation Back/Pelvis He has incredibly extensive bruising along the back, tracking down into the abdominal wall, and the groin. He has basically black and blue from the neck down to the pelvis. Neurology GCS 15 Results Vitals Vitals: Vital Signs - 24 hr 08/15/24 15:54 08/15/24 16:20 08/15/24 16:50 Temperature 36.9 C 36.9 C Temperature Source Oral Pulse Rate 58 L 54 L 45 L Respiratory Rate 15 18 15 Blood Pressure 167/74 H 161/85 H 133/64 H O2 Saturation 96 96 97 O2 Source Room air Room air Pain Intensity 0 0 08/15/24 17:50 Temperature Temperature Source Pulse Rate 54 L Respiratory Rate 16 Blood Pressure 154/80 H O2 Saturation 95 O2 Source Room air Pain Intensity 0 Oxygen O2 Source Room air Labs Labs: Laboratory Tests 08/15/24 16:22 WBC 9.6 RBC 3.14 L Hgb 10.3 L Hct 31.1 L MCV 99.0 H MCH 32.8 H MCHC 33.1 RDW 16.9 H Plt Count 205 MPV 9.0 Neut # (Auto) 8.2 H Lymph # (Auto) 0.6 L Elmore # (Auto) 0.6 Eos # (Auto) 0.1 Baso # (Auto) 0.0 Absolute Nucleated RBC 0.00 Nucleated RBC % 0.0 Sodium 122 L Potassium 4.3 Chloride 88 L Carbon Dioxide 28 Anion Gap 6.0 BUN 14 Creatinine 0.4 L Estimated GFR (MDRD) 203 Glucose 105 H Calcium 9.0 Total Bilirubin 2.6 H AST 27 ALT 19 Alkaline Phosphatase 140 H Total Protein 6.3 L Albumin 4.0 Globulin 2.3 Albumin/Globulin Ratio 1.7 Blood Type A POSITIVE Antibody Screen NEGATIVE Rads (name of study) CT head showing chronic findings and sinus disease without traumatic findings.: Relevant Findings:: Final report received and EMP independent interpretation of test (NAD) CT cervical spine showing prominent thyroid gland with recommendation for nonemergent ultrasound: Relevant Findings:: Final report received and EMP independent interpretation of test (no frx) CT Chest: Relevant Findings:: Final report received and EMP independent interpretation of test Interpretation: Acute, mildly displaced fractures involving the lateral right 10th rib as well as the posterior left 7th and 8th ribs. No pneumothorax. Small bilateral pleural effusions. Prominent mediastinal lymph nodes and scattered right upper and middle lobe pulmonary nodules which may be infectious or inflammatory etiology. Recommend follow-up chest CT in 3 months to document stability. CT Abd/pel: Relevant Findings:: Final report received and EMP independent interpretation of test Interpretation: CT abdomen and pelvis without acute traumatic injuries to the solid or hollow organs. Small bilateral pleural effusions and mild cardiomegaly. Please see dedicated CT chest report for further details. Hepatic steatosis. Colonic diverticulosis without acute diverticulitis. Extensive atherosclerotic vascular calcifications. No acute osseous abnormalities. Diffuse osteopenia. Moderate multilevel spondylosis of the imaged spine. PD Medical Decision Making ED course ED course: This is an 89-year-old gentleman on [employer] who fell almost a week ago and had cranial and spinal imaging at the time that was negative. Now presents with weakness, some mild confusion, and extensive bruising of his trunk. Clinically the bruising really is pretty impressive and looks like he probably lost at least a few units of blood into his subcutaneous tissue. Workup demonstrates h emoglobin of 10, it was 13. days ago. And his sodium is 122, it was 131 5 days ago. Now in hindsight I think his weakness and confusion is a combination of acute blood loss anemia and hyponatremia. He was administered hypertonic saline. CT zamorano scan was done with numerous incidental findings which were discussed with the patient and and they were given copies of the reads with discussion of need for repeat chest CT in 3 months as well as outpatient thyroid ultrasound. He also had 3 rib fractures. He really does not have any pain from those thankfully. Call to the hospitalist service for admission at 6:07 PM and I also spoke with our on-call surgeon, Dr. Buitrago at about 6:05 PM to consult since technically this is a trauma case. That said I do not think he needs to be admitted to the surgery service given that most of his issues are medical. The patient and family are counseled as to the diagnosis and need for admission. This document was made in part using voice recognition software, while efforts are made to proofread this document, sound alike an grammatical errors may occur. Discharge Plan Discharge Patient Disposition: 66 [facility] DC/Xfer Condition: Serious Clinical Impression: Acute hyponatremia, Acute blood loss anemia (ABLA), Thyroid nodule, Lymphadenopathy, thoracic Fall from slip, trip, or stumble Qualifiers: Encounter type: initial encounter Qualified Code(s): W01.0XXA - Fall on same l evel from slipping, tripping and stumbling without subsequent striking against object, initial encounter Fracture, ribs Qualifiers: Encounter type: initial encounter Fracture type: closed Laterality: bilateral Qualified Code(s): S22.43XA - Multiple fractures of ribs, bilateral, initial encounter for closed fracture Prescriptions: No Action atorvastatin 20 MG tablet 20 mg PO DAILY sildenafil [Viagra] 100 MG tablet 100 mg PO DAILY levothyroxine 100 MCG tablet 1 tab PO DAILY tamsulosin 0.4 MG capsule 0.4 mg PO ONCE metoprolol tartrate 50 MG tablet 1 tab PO DAILY allopurinol 300 MG tablet 300 mg PO DAILY sertraline 50 MG tablet 50 mg PO DAILY diazepam 5 MG tablet 5 mg PO DAILY rivaroxaban [Xarelto DVT-PE Treat 30d Start] 1 EACH tablets,dose pack 1 ea PO DAILY albuterol sulfate [ProAir RespiClick] 90 MCG aerosol powdr breath activated 90 mcg IH BID prednisone 10 MG tablet 10 mg PO [id number] Qty: 42 0RF Rx Instructions: Day 1-4: Take 60mg (6 tablets) daily; Day 5-7: Take 40mg (4 tablets) daily; Day 8-10: Take 20mg (2 tablets) daily benzonatate [Tessalon Perles] 100 MG capsule 100 - 200 mg PO TID PRN (Reason: Cough) Qty: 30 0RF azithromycin 250 MG tablet 1 tab PO DAILY Qty: 6 0RF Rx Instructions: 500 MG ON DAY 1, THEN 250 MG DAILY X 4 DAYS FOR A TOTAL OF 5 DAYS albuterol sulfate [Ventolin HFA] 200 PUFFS/18 GM HFA aerosol inhaler 1 - 2 puff inhalation Q4HR PRN (Reason: Shortness Of Air/Wheezing) Qty: 1 0RF Print Language: Telugu
[2024-08-15] MEDS ORDERED: iohexoL-300 100 ML VIAL ONE (16:28)
[2024-08-15 16:29] LABS: BASOPHILS % (AUTO) 0.3 %; EOSINOPHILS # (AUTO) 0.1 10^3/uL (0.0-0.7); EOSINOPHILS % (AUTO) 0.6 %; HCT - HEMATOCRIT 31.1 % (42.0-52.0); HGB - HEMOGLOBIN 10.3 g/dL (14.0-18.0); LYMPHOCYTES # (AUTO) 0.6 10^3/uL (1.5-3.5); LYMPHOCYTES % (AUTO) 6.6 %; MEAN CORPUSCULAR HEMOGLOBIN 32.8 pg (27.0-31.0); MEAN CORPUSCULAR HGB CONC 33.1 g/dL (32.0-36.0); MONOCYTES # (AUTO) 0.6 10^3/uL (0.0-1.0); MONOCYTES % (AUTO) 6.5 %; NEUTROPHILS # (AUTO) 8.2 10^3/uL (1.5-6.6); NEUTROPHILS % (AUTO) 85.5 %; PLT - PLATELET COUNT 205 10^3/uL (130-450); RED BLOOD COUNT 3.14 10^6/uL (4.70-6.10); RED CELL DISTRIBUTION WIDTH 16.9 % (12.0-15.0); WHITE BLOOD COUNT 9.6 x10^3/uL (4.8-10.8)
[2024-08-15 16:45] LABS: ALBUMIN/GLOBULIN RATIO 1.7 (1.0-2.2); BILIRUBIN,TOTAL 2.6 mg/dL (0.2-1.0); CREATININE 0.4 mg/dL (0.6-1.3); POTASSIUM 4.3 mmol/L (3.5-4.5); TOTAL PROTEIN 6.3 g/dL (6.4-8.9)
[2024-08-15] MEDS: iohexoL-300 100 ML VIAL IVP ONE (16:58)
--- NOTE | 2024-08-15 17:41 | CT Report ---
PROCEDURE: CT Head WO INDICATIONS: Fall with head injury, anticoagulated TECHNIQUE: Noncontrast 4.5 mm thick angled axial sections acquired from the foramen magnum to the vertex. For r adiation dose reduction, the following was used: automated exposure control, adjustment of mA and/or kV according to patient size. COMPARISON: 08/08/2024. FINDINGS: Image quality: Diagnostic. CSF spaces: Basal cisterns are patent. No extra-axial fluid collections. Ventricles are normal in size and shape. Brain: No midline shift. No intracranial masses or hemorrhage. No mass effect. Watkins-white matter i nterface is normal. There cerebral volume loss for age with resultant ventricular and sulcal prominen ce. There are periventricular and deep white matter chronic small vessel ischemic changes. Atheroscle rotic calcifications are noted in the intracranial segments of the bilateral internal carotid arterie s. Skull and face: Calvarium and visualized facial bones are intact, without suspicious lesions. Sinuses: The mastoids are clear. Redemonstration of mucosal thickening of the bilateral maxillary si nuses more pronounced on the left. Other paranasal sinuses are relatively clear. IMPRESSION: No acute intracranial pathology. No acute calvarial fracture Age-related senescent changes and sequela of chronic small vessel ischemic disease. Bilateral maxillary sinus disease. Reviewed by: Raphael Kaufman MD on 08/15/2024 5:39 PM PST Approved by: Raphael Kaufman MD on 08/15/2024 5:39 PM PST Station ID: [id number]
--- NOTE | 2024-08-15 17:43 | CT Report ---
PROCEDURE: CT Cervical Spine WO INDICATIONS: Fall with head injury, anticoagulated TECHNIQUE: Noncontrast 3 mm thick sections acquired from the skull base to the T4 level. Sagittal and coronal r eformats were then constructed. For radiation dose reduction, the following was used: automated exp osure control, adjustment of mA and/or kV according to patient size. COMPARISON: None. FINDINGS: Image quality: Diagnostic. Bones: No acute fractures or dislocations. No acute compression fractures of the vertebral bodies. Craniocervical junction is intact. C1-C2 relationship is preserved. Visualized superior ribs are inta ct. Severe multilevel cervical spondylosis most pronounced from C3-4 through C6-7. Soft tissues: Prevertebral soft tissues are normal in thickness. No paravertebral hematomas. No ap ical pneumothoraces. Heterogeneous, enlarged left lower lobe with ill-defined prominent thyroid nodul es. IMPRESSION: CT cervical spine without acute fracture or traumatic malalignment. Prominent, heterogeneous thyroid gland with ill-defined nodules and calcifications in the left thyroi d lobe. Recommend dedicated outpatient thyroid ultrasound for further characterization. Reviewed by: Raphael Kaufman MD on 08/15/2024 5:42 PM PST Approved by: Raphael Kaufman MD on 08/15/2024 5:42 PM PST Station ID: [id number]
[2024-08-15] MEDS: SODIUM CHLORIDE 3% HYPERTONIC 50 ML IV SCH (17:46)
--- NOTE | 2024-08-15 17:51 | CT Report ---
PROCEDURE: CT Chest W INDICATIONS: Fall with trunk injuries, extensive bruising CONTRAST: OMNI 300 100ML TECHNIQUE: After the administration of intravenous contrast, a CT scan of the chest was performed. Images were recorded and evaluated at appropriate window settings. Reformats: axial MIP of the chest, coronal and sagittal. For radiation dose reduction, the following was used: automated exposure control, adjustme nt of mA and/or kV according to patient size. COMPARISON: None. FINDINGS: Image quality: Diagnostic. Chest wall and lower neck: Heterogeneous, enlarged thyroid more pronounced on the left with ill-defin ed prominent nodules and coarse calcifications. No breast mass. No axillary or supraclavicular adenop athy by size. Lungs and pleura: Small bilateral pleural effusions with associated compressive atelectasis. Mild kyle ateral subpleural reticulation. Minimal perihilar airway thickening. No suspicious consolidation. No septal nodularity. A few scattered pulmonary nodules noted in the inferior right upper lobe and right middle lobe. No pneumothorax. Mediastinum: Heart size is enlarged. No pericardial effusion. Coronary atherosclerosis. No large vess el abnormality. Prominent scattered mediastinal lymph nodes most pronounced in the right paratracheal and precarinal region. Bones: No aggressive osseous abnormality. Acute, minimally displaced lateral right 10th rib fracture. Posterior left 7th rib fracture. Posterior left 8th rib fracture Upper Abdomen: Abdominal and pelvic findings reported separately on dedicated CT evaluation. Please s ee separate report for details. IMPRESSION: Acute, mildly displaced fractures involving the lateral right 10th rib as well as the posterior left 7th and 8th ribs. No pneumothorax. Small bilateral pleural effusions. Prominent mediastinal lymph nodes and scattered right upper and middle lobe pulmonary nodules which m ay be infectious or inflammatory etiology. Recommend follow-up chest CT in 3 months to document stabi lity. Mild cardiomegaly. Atherosclerosis. Enlarged, heterogeneous thyroid gland most pronounced in the left lower lobe. Recommend dedicated out patient thyroid ultrasound for further characterization. Reviewed by: Raphael Kaufman MD on 08/15/2024 5:49 PM [facility] Approved by: Raphael Kaufman MD on 08/15/2024 5:49 PM PST Station ID: [id number]
--- NOTE | 2024-08-15 17:56 | CT Report ---
PROCEDURE: CT Abdomen/Pelvis W INDICATIONS: Fall with trunk injuries, extensive bruising CONTRAST: OMNI 300 100ML TECHNIQUE: After the administration of intravenous contrast, a CT scan of the abdomen and pelvis was performed. Images were recorded and evaluated at appropriate window settings. Reformats: coronal and sagittal. F or radiation dose reduction, the following was used: automated exposure control, adjustment of mA and /or kV according to patient size. COMPARISON: None. FINDINGS: Image quality: Diagnostic. Lower chest: Please see separate CT chest report for details. Small bilateral pleural effusions, card iomegaly. Liver: Hepatic steatosis. Gallbladder: No radiopaque stones or wall thickening. Biliary tree: No intrahepatic or extrahepatic dilation, accounting for age. Spleen: No splenomegaly. Pancreas: No pancreatic ductal dilation. Adrenals: No adrenal nodule. Kidneys and ureters: No hydronephrosis. No renal cystic lesion which requires follow up. No solid mas s. Stomach, bowel and peritoneum: No gastric or small bowel dilation. No abnormal wall thickening. No pa thologic free fluid. Diverticulosis without evidence of diverticulitis. Normal appendix. No evidence for small bowel obstruction. Lymph nodes: No central or retroperitoneal adenopathy. Vessels: No infrarenal aortic aneurysm. Patent portal vein. Extensive atherosclerotic desiccation. PELVIS Reproductive organs: Unremarkable. Bladder: No abnormal wall thickening, accounting for underdistention. Pelvic lymph nodes: No pelvic adenopathy by size criteria. Bones: No aggressive osseous abnormality. Diffuse osteopenia. Multilevel spondylosis of the imaged sp ine. Visualized pelvic ring appears intact. Other: No significant ventral or inguinal hernia. IMPRESSION: CT abdomen and pelvis without acute traumatic injuries to the solid or hollow organs. Small bilateral pleural effusions and mild cardiomegaly. Please see dedicated CT chest report for fur ther details. Hepatic steatosis. Colonic diverticulosis without acute diverticulitis. Extensive atherosclerotic vascular calcifications. No acute osseous abnormalities. Diffuse osteopenia. Moderate multilevel spondylosis of the imaged spi ne. Reviewed by: Raphael Kaufman MD on 08/15/2024 5:55 PM PST Approved by: Raphael Kaufman MD on 08/15/2024 5:55 PM PST Station ID: [id number]
--- NOTE | 2024-08-15 19:29 | HISTORY & PHYSICAL EXAMINATION ---
Chief Complaint Chief Complaint Chief Complaint: weakness History of Present Illness Admitted From Admitted From:: Emergency department History Obtained From Records Reviewed: Emergency room note 08/15/24 and 08/08/24 History of Present Illness HPI Comment/Other: Patient is an 89 year old male with history of HLD, Afib, mild persistent asthma, anxiety/depression, hypothyroidism, BPH that presents for weakness and multiple falls. He was seen for fall with head abrasion 1 week ago, head, neck, and thoracic spine CT were unremarkable. Prior to fall, patient was walking with cane, used walker after fall. Since his fall, he has had weakness, malaise, fatigue, rib pain, extensive bruising, decreased appetite, feet swelling, and multiple falls. Denies hitting his head on any of these falls. Patient is on Xarelto for his afib. He notes increased shortness of breath in the last couple weeks, he states he has increased albuterol use from once daily to twice daily. Patient has had balance issues for the past month and he has an appointment with [facility]. He describes vertigo when turning his head. He feels his balance has been worse this past week. He states his heart rate often runs low, in the 40s. Patient denies headaches, tinnitus, change in vision, palpitations, chest pain, diarrhea, hematochezia. Patient sodium was 122 on admission, was administered sodium chloride 3% hypertonic IV solution in ER. ER also ordered CT A&P, CT chest, CT head, Cervical spine CT. Patient PCP is Dr. Mcguire at [facility]. Meds/Allgy Home Medications Ambulatory Orders Medication Instructions Recorded Confirmed albuterol sulfate 90 mcg/actuation 90 mcg IH BID 08/02/18 04/12/24 breath activated powder inhaler (ProAir RespiClick) allopurinol 300 mg tablet 300 mg PO DAILY 08/02/18 04/12/24 atorvastatin 20 mg tablet 20 mg PO DAILY 08/02/18 04/12/24 benzonatate 100 mg capsule 100 - 200 mg (1 - 2 x 100 mg) PO 08/02/18 04/12/24 (Tessalon Perles) TID PRN Cough #30 caps diazepam 5 mg tablet 5 mg PO DAILY 08/02/18 04/12/24 levothyroxine 100 mcg tablet 1 tab PO DAILY 08/02/18 04/12/24 metoprolol tartrate 50 mg tablet 1 tab PO DAILY 08/02/18 04/12/24 prednisone 10 mg tablet 10 mg PO [id number] #42 tabs 08/02/18 04/12/24 rivaroxaban 15 mg (42)-20 mg (9) 1 ea PO DAILY 08/02/18 04/12/24 tablets in a starter pack (Xarelto DVT-PE Treatment 30-Day Starter) sertraline 50 mg tablet 50 mg PO DAILY 08/02/18 04/12/24 sildenafil 100 mg tablet (Viagra) 100 mg PO DAILY 08/02/18 04/12/24 tamsulosin 0.4 mg capsule 0.4 mg PO ONCE 08/02/18 04/12/24 albuterol sulfate 90 mcg/actuation 1 - 2 puff inhalation Q4HR PRN 08/03/19 04/12/24 aerosol inhaler (Ventolin HFA) Shortness Of Air/Wheezing ##1 azithromycin 250 mg tablet 1 tab PO DAILY #6 tabs 08/03/19 04/12/24 Allergies Allergies Allergy/AdvReac Type Severity Reaction Status Date / Time No Known Drug Allergies Allergy Verified 08/15/24 16:20 PFSH Active Problems All Active Problems (Updated 08/15/24 @ 19:56 by Pat Worthy) Multiple falls (Acute) Atrial fibrillation (Acute) Weakness (Acute) Bradycardia (Acute) Lymphadenopathy, thoracic (Acute) Thyroid nodule (Acute) Acute blood loss anemia (ABLA) (Acute) Fracture, ribs (Acute) Acute hyponatremia (Acute) Anticoagulant long-term use (Acute) Acute midline thoracic back pain (Acute) Abrasion of scalp (Acute) Fall from slip, trip, or stumble (Acute) Encounter for removal of sutures (Acute) Medical History Medical History (Updated 08/15/24 @ 19:56 by Pat Worthy) Heart murmur Social History Social History (Updated 08/15/24 @ 19:45 by Pat Worthy) Smoking Status: Former smoker If you are a former smoker, when did you quit? (Date/Year): 1994 How many cigarettes a day do you smoke? (20 cigarettes=1 Pk): 2 Living arrangement: At home Marital Status: Living Condition: With spouse/s.o. Relationship: Do you feel safe in your home environment?: Yes Suffered physical, verbal, emotional, or financial abuse?: No ETOH Use: Wine Frequency: Daily Number of Amount/day: 2 ETOH Use Details: "a couple of glasses of wine a night and occasional scotch" POLST POLST Status: DNR Review of Systems Constitutional Reports: Fatigue, Malaise, Weakness and Poor appetite Eyes Denies: Vision loss or Change in vision Ears, nose, mouth, and throat Reports: Vertigo; Denies: Tinnitus Cardiovascular Reports: swelling of feet/ankles and shortness of breath with exertion; Denies: chest pain or palpitations Respiratory Reports: Shortness of breath Gastrointestinal Reports: Poor appetite; Denies: Diarrhea, Rectal bleeding or Blood in stool Neurological Reports: General weakness, Dizziness and Vertigo; Denies: Focal weakness, Memory problems, Behavioral changes or Slurred speech Endocrine Reports: Fatigue Hematologic/Lymphatic Reports: Easy bruising and Petechiae Exam Constitutional normal general appearance HENMT normocephalic, head/scalp atraumatic, hearing grossly normal bilaterally and external ears normal Eyes PERRL, EOMs intact bilaterally, conjunctivae normal and no scleral icterus Neck/C-Spine visual inspection normal and thyroid abnormality noted (1cm nodule left side) Chest inspection of chest normal extensive ecchymoses, tenderness to palpation bilaterally, crepitus and displaced rib on left side Respiratory breath sounds equal bilaterally, normal respiratory effort, clear to auscultation bilaterally, no wheezes and no rales Cardiovascular heart rate abnormal (bradycardic), rhythm abnormal (irregular), murmur noted (III/), peripheral pulses 2+ throughout and no edema Gastrointestinal abdomen soft to palpation, nontender to palpation, nondistended and normoactive bowel sounds Extremities normal to inspection Neurology teacher education director II-XII intact and speech normal Psychiatry mental status grossly normal, oriented x3, thought process normal, cooperative, affect normal and memory normal Skin ecchymosis noted (widespread ecchymoses over entire abdomen and upper thighs), wound(s) noted (abrasion bilateral knees) and jaundice noted (mild) Conclusion/Plan Problem List (1) Acute hyponatremia: Plan: -Sodium 122 on admission. Patient received hypertonic 3% saline IV in ER. -hyponatremia differential includes poor oral intake, sertraline use, hypothyroidism Will recheck saline when patient gets to floor, recheck BMP tomorrow. Will also check urine osmolality, serum osmolality, TSH tomorrow. (2) Bradycardia: Plan: Patient heart rate ranges from 45-65. Due to his atrial fibrillation, he is on metoprolol. Likely bradycardia is contributing to recent weakness and falls. Will discontinue metoprolol while patient is inpatient, patient will follow up with PCP to discuss permanent discontinuation. EKG and ECHO ordered. (3) Acute blood loss anemia (ABLA): Plan: Hemoglobin decreased from 13.4 to 10.3 in the last five days. Likely anemia is due to Xarelto use combined with extensive bruising throughout the abdomen and extremities. Patient does not qualify for blood transfusion at this time. Will recheck CBC tomorrow. Holding Xarelto during hospital stay to try to limit blood loss. (4) Fracture, ribs: Plan: On Chest CT today there is Acute, mildly displaced fractures involving the lateral right 10th rib as well as the posterior left 7th and 8th ribs. No pneumothorax. Small bilateral pleural effusions. Likely result of fall last week. Patient denies pain unless area is being palpated. Left sided lower rib crepitis, able to displace rib on exam. Ordered oxycodone 5mg PRN, tylenol 1000mg TID for pain control. Patient will have PT/OT consult tomorrow. Qualifiers: Encounter type: initial encounter Fracture type: closed Laterality: b ilateral Qualified Code(s): S22.43XA - Multiple fractures of ribs, bilateral, initial encounter for closed fracture (5) Weakness: Plan: Patient has been having increased weakness for the past week. Multiple contributing factors including hyponatremia, anemia, bradycardia, atrial fibrillation, poor oral intake, general soreness from fall last week. Metoprolol held to improve bradycardia component. Will recheck labs tomorrow. PT/OT consult tomorrow. Patient can continue to follow up with [facility]. (6) Atrial fibrillation: Plan: Patient is in active afib during exam, but denies palpitations. He has been having increased shortness of breath and weakness which could be related to his afib. Patient also has heart murmur on exam. ECHO and EKG ordered to evaluate heart murmur and afib. Discontinuing metoprolol while inpatient due to bradycardia, can discuss permanent discontinuation with PCP. (7) Multiple falls: Plan: Patient has been having balance issues for the past month, had a fall with head injury last week which was negative for pathology on CT head, CT neck, and CT thoracic spine. Since discharge last week, patient has had multiple falls, but denies hitting head or other serious injury. Multiple contributing factors including bradycardia, afib, poor oral intake, hyponatremia, anemia, possible BPPV. -Will have PT/OT consult. Rechecking labs to monitor contributing factors. Patient can follow up with [facility]. (8) Thyroid nodule: Plan: On cervical spine CT, patient has prominent, heterogeneous thyroid gland with ill-defined nodules and calcifications in the left thyroid lobe. Radiologist recommended dedicated outpatient thyroid ultrasound. One thyroid nodule is palpable on left lobe physical exam. Patient is currently taking levothyroxine 100mcg qd. Hypothryoidism could possibly be contributing to fatigue, weakness, and hyponatremia. Will check TSH tomorrow morning, recommend outpatient ultrasound and follow up with PCP. Plan Patient is DNR, is decision maker in case of adverse event. Lab Results Lab results reviewed: Yes 08/15/24 16:22 08/15/24 16:22 Diagnostic Imaging Results Diagnostic Imaging Results: positive Final report reviewed
[2024-08-15] MEDS ORDERED: oxyCODONE 5 MG TABLET PO PRN (19:40)
--- NOTE | 2024-08-15 19:59 | CONSULTATION NOTE ---
Chief Complaint Chief Complaint Chief Complaint: weak History of Present Illness History Obtained From Records Reviewed: yes History obtained from: pt Exam Limitations: none History of Present Illness HPI Comment/Other: 2 falls last week. came to the ed feeling too weak to be home. no real complaints. ribs hurt at first following a fall; however, minimal to no pain now. no breathing problems. no abdominal problems. eating a sandwich at this time. very alert. he takes xarelto. Meds/Allgy Home Medications Ambulatory Orders Medication Instructions Recorded Confirmed albuterol sulfate 90 mcg/actuation 90 mcg IH BID 08/02/18 04/12/24 breath activated powder inhaler (ProAir RespiClick) allopurinol 300 mg tablet 300 mg PO DAILY 08/02/18 04/12/24 atorvastatin 20 mg tablet 20 mg PO DAILY 08/02/18 04/12/24 benzonatate 100 mg capsule 100 - 200 mg (1 - 2 x 100 mg) PO 08/02/18 04/12/24 (Tesdenita Boles) TID PRN Cough #30 caps diazepam 5 mg tablet 5 mg PO DAILY 08/02/18 04/12/24 levothyroxine 100 mcg tablet 1 tab PO DAILY 08/02/18 04/12/24 metoprolol tartrate 50 mg tablet 1 tab PO DAILY 08/02/18 04/12/24 prednisone 10 mg tablet 10 mg PO [id number] #42 tabs 08/02/18 04/12/24 rivaroxaban 15 mg (42)-20 mg (9) 1 ea PO DAILY 08/02/18 04/12/24 tablets in a starter pack (Xarelto DVT-PE Treatment 30-Day Starter) sertraline 50 mg tablet 50 mg PO DAILY 08/02/18 04/12/24 sildenafil 100 mg tablet (Viagra) 100 mg PO DAILY 08/02/18 04/12/24 tamsulosin 0.4 mg capsule 0.4 mg PO ONCE 08/02/18 04/12/24 albuterol sulfate 90 mcg/actuation 1 - 2 puff inhalation Q4HR PRN 08/03/19 04/12/24 aerosol inhaler (Ventolin HFA) Shortness Of Air/Wheezing ##1 azithromycin 250 mg tablet 1 tab PO DAILY #6 tabs 08/03/19 04/12/24 Allergies Allergies Allergy/AdvReac Type Severity Reaction Status Date / Time No Known Drug Allergies Allergy Verified 08/15/24 16:20 PFSH Active Problems All Active Problems (Updated 08/15/24 @ 19:56 by Pat Worthy) Multiple falls (Acute) Atrial fibrillation (Acute) Weakness (Acute) Bradycardia (Acute) Lymphadenopathy, thoracic (Acute) Thyroid nodule (Acute) Acute blood loss anemia (ABLA) (Acute) Fracture, ribs (Acute) Acute hyponatremia (Acute) Anticoagulant long-term use (Acute) Acute midline thoracic back pain (Acute) Abrasion of scalp (Acute) Fall from slip, trip, or stumble (Acute) Encounter for removal of sutures (Acute) Medical History Medical History (Updated 08/15/24 @ 19:56 by Pat Worthy) Heart murmur Social History Social History (Updated 08/15/24 @ 19:45 by Pat Worthy) Smoking Status: Former smoker If you are a former smoker, when did you quit? (Date/Year): 1994 How many cigarettes a day do you smoke? (20 cigarettes=1 Pk): 2 Living arrangement: At home Marital Status: Living Condition: With spouse/s.o. Relationship: Do you feel safe in your home environment?: Yes Suffered physical, verbal, emotional, or financial abuse?: No ETOH Use: Wine Frequency: Daily Number of Amount/day: 2 ETOH Use Details: "a couple of glasses of wine a night and occasional scotch" Results Lab Results Lab results reviewed: Yes 08/15/24 16:22 08/15/24 16:22 Other Lab Results: Lab Results x24hrs 08/15/24 08/15/24 Range/Units 16:33 16:22 WBC 9.6 (4.8-10.8) x10^3/uL RBC 3.14 L (4.70-6.10) 10^6/uL Hgb 10.3 L (14.0-18.0) g/dL Hct 31.1 L (42.0-52.0) % MCV 99.0 H (80.0-94.0) fL MCH 32.8 H (27.0-31.0) pg MCHC 33.1 (32.0-36.0) g/dL RDW 16.9 H (12.0-15.0) % Plt Count 205 (130-450) 10^3/uL MPV 9.0 (7.4-11.4) fL Neut # (Auto) 8.2 H (1.5-6.6) 10^3/uL Lymph # (Auto) 0.6 L (1.5-3.5) 10^3/uL [place] # (Auto) 0.6 (0.0-1.0) 10^3/uL Eos # (Auto) 0.1 (0.0-0.7) 10^3/uL Baso # (Auto) 0.0 (0.0-0.1) 10^3/uL Absolute Nucleated RBC 0.00 x10^3/uL Nucleated RBC % 0.0 /100WBC Sodium 122 L (135-145) mmol/L Potassium 4.3 (3.5-4.5) mmol/L Chloride 88 L (101-111) mmol/L Carbon Dioxide 28 (21-32) mmol/L Anion Gap 6.0 (6-13) BUN 14 (6-20) mg/dL Creatinine 0.4 L (0.6-1.3) mg/dL Estimated GFR (MDRD) 203 (>89) Glucose 105 H (74-104) mg/dL Calcium 9.0 (8.5-10.3) mg/dL Total Bilirubin 2.6 H (0.2-1.0) mg/dL AST 27 (10-42) IU/L ALT 19 (10-60) IU/L Alkaline Phosphatase 140 H (42-121) IU/L Total Protein 6.3 L (6.4-8.9) g/dL Albumin 4.0 (3.2-5.5) g/dL Globulin 2.3 (2.1-4.2) g/dL Albumin/Globulin Ratio 1.7 (1.0-2.2) Blood Type A POSITIVE Blood Type Recheck A POSITIVE Antibody Screen NEGATIVE Review of Systems Status of ROS: 10 or more systems reviewed and unremarkable except as noted in history and below Exam Constitutional normal general appearance and no apparent distress HENMT normocephalic and head/scalp atraumatic Eyes PERRL, EOMs intact bilaterally and no scleral icterus Neck/C-Spine trachea midline Respiratory normal respiratory effort Gastrointestinal nontender to palpation and nondistended anterior and posterior lower trunk, buttock, scrotum ecchymotic without hematoma or skin compromise Neurology speech normal and GCS 15 Psychiatry oriented x3, thought process normal, cooperative, affect normal and memory normal Skin as above. ecchymosis without skin compromise Conclusion/Plan Problem List (1) Fracture, ribs: Plan: he is very comfortable. rib fractures occurred a week ago and now has little to no pain. breathing comfortably. I do not believe the rib fracture protocol is needed. significant ecchymosis anterior and posterior lower trunk with out hematoma or skin breakdown. ok to be on anticoagulation at this time. benign abdominal exam. agree with regular diet. Qualifiers: Encounter type: initial encounter Fracture type: closed Laterality: b ilateral Qualified Code(s): S22.43XA - Multiple fractures of ribs, bilateral, initial encounter for closed fracture Lab Results Lab results reviewed: Yes 08/15/24 16:22 08/15/24 16:22
[2024-08-15] MEDS ORDERED: TAMSULOSIN 0.4 MG CAPSULE PO SCH (20:22)
[2024-08-15] MEDS ORDERED: SODIUM CHLORIDE FLUSH 0.9% 10 ML SYRINGE IVP PRN (20:22)
[2024-08-15] MEDS ORDERED: ONDANSETRON 4 MG/2 ML VIAL IVP PRN (20:22)
[2024-08-15] MEDS: ACETAMINOPHEN 500 MG TABLET PO SCH (21:51)
[2024-08-15] MEDS: SODIUM CHLORIDE FLUSH 0.9% 10 ML SYRINGE IVP SCH (21:53)
[2024-08-16] MEDS: LEVOTHYROXINE 100 MCG TABLET PO SCH (06:18)
[2024-08-16 06:25] LABS: BASOPHILS % (AUTO) 0.3 %; EOSINOPHILS # (AUTO) 0.1 10^3/uL (0.0-0.7); EOSINOPHILS % (AUTO) 1.8 %; HCT - HEMATOCRIT 28.8 % (42.0-52.0); HGB - HEMOGLOBIN 9.9 g/dL (14.0-18.0); LYMPHOCYTES # (AUTO) 0.7 10^3/uL (1.5-3.5); LYMPHOCYTES % (AUTO) 11.3 %; MEAN CORPUSCULAR HEMOGLOBIN 33.8 pg (27.0-31.0); MEAN CORPUSCULAR HGB CONC 34.4 g/dL (32.0-36.0); MEAN CORPUSCULAR VOLUME 98.3 fL (80.0-94.0); MEAN PLATELET VOLUME 9.2 fL (7.4-11.4); MONOCYTES # (AUTO) 0.6 10^3/uL (0.0-1.0); MONOCYTES % (AUTO) 9.2 %; NEUTROPHILS # (AUTO) 4.8 10^3/uL (1.5-6.6); NEUTROPHILS % (AUTO) 77.1 %; PLT - PLATELET COUNT 199 10^3/uL (130-450); RED BLOOD COUNT 2.93 10^6/uL (4.70-6.10); RED CELL DISTRIBUTION WIDTH 16.6 % (12.0-15.0); WHITE BLOOD COUNT 6.2 x10^3/uL (4.8-10.8)
[2024-08-16 06:38] LABS: CALCIUM 8.7 mg/dL (8.5-10.3); CREATININE 0.4 mg/dL (0.6-1.3); POTASSIUM 3.9 mmol/L (3.5-4.5)
[2024-08-16 06:56] LABS: THYROID STIMULATING HORMONE 3.03 uIU/mL (0.34-5.60)
[2024-08-16] MEDS: ATORVASTATIN 10 MG TABLET PO SCH (08:16)
[2024-08-16] MEDS: TAMSULOSIN 0.4 MG CAPSULE PO SCH (08:17)
[2024-08-16] MEDS: SERTRALINE 50 MG TABLET PO SCH (08:17)
[2024-08-16] MEDS ORDERED: SODIUM CHLORIDE 3% HYPERTONIC 0 ML IV SCH ×2 (14:00→20:00)
[2024-08-16] MEDS: SODIUM CHLORIDE 3% HYPERTONIC 50 ML IV SCH (14:05)
--- NOTE | 2024-08-16 14:21 | PT Plan of Care ---
PT Plan of Care Physical Therapy Plan of Care: Diagnosis Diagnosis hyponatremia; rib fx; head strike 2/2 falls Referring Provider Rosa Wright Patient Status Inpatient Chief Complaint Chief Complaint weakness and falls Onset of Chief Complaint RESPIRATORY THERAPY DIRECTOR Medical History (Updated 08/15/24 @ 19:56 by Pat Worthy) Heart murmur Assessment Assessment Pt is an 89yo M with PMH of HLD, Afib, mild persistent asthma, anxiety/depression, hypothyroidism, BPH that presents for weakness and multiple falls. He was seen for fall with head abrasion 1 week ago and imaging at that time was unremarkable. Head and cervical spine imaging remains negative, Chest CT: Acute, mildly displaced fractures involving the lateral right 10th rib as well as the posterior left 7th and 8th ribs. No pneumothorax. Small bilateral pleural effusions. Abdominal CT negative acute injury. Cleared for therapy evaluation. Upon PT eval, pt met sitting in chair at ICU level of care. VSS on RA HR 40s- 60s; BP 140s/60s, SpO2 WNL. Denied sequela. Performed sit to stand and ambulation around room using pt's own 4WW and minAx1. Pt presenting overall with decreased endurance, activity tolerance, and ADL status. Will benefit from skilled PT services during acute stay. When medically clear, PT rec dc to SNF vs home pending progress with therapy and wifes ability to assist. Goals Improve bed mobility to: Contact Guard Improve supine to sit to: Contact Guard Improve sit to stand to: Contact Guard Improve pivot transfer ability Contact Guard to: Improve sit to supine to: Contact Guard Improve gait ability to: CGA Assistive Device Used: Four Wheeled Walker Improve Standing Balance to: Good PT Plan of Care Frequency 1-2x/day Duration Until goals are met Discharge Recommendations Discharge Location SNF vs home Other has 4WW Transport Needs at Discharge Personal vehicle
[2024-08-16 16:30] LABS: CALCIUM 8.9 mg/dL (8.5-10.3); CREATININE 0.5 mg/dL (0.6-1.3); POTASSIUM 4.3 mmol/L (3.5-4.5)
--- NOTE | 2024-08-16 17:13 | PROVIDER PROGRESS NOTE ---
Assessment/Plan Problem List (1) Acute hyponatremia: Assessment/Plan: Overall, patient is feeling comfortable and improved, but still weak. On admission sodium was 122, was given 50mL of hypertonic saline in ER, improved from 122 to 124. Patient was given another 50mL of hypertonic 3% saline today, sodium improved from 124 to 125. Thyroid was normal, is not contributing to hyponatremia. Differential includes poor intake, alcohol use, sertraline use. Will give another 50mL of hypertonic saline and recheck BMP tomorrow morning. (2) Bradycardia: Assessment/Plan: Pulse ranged from 45 to 60 today, patient feels improved but still weak. ECHO indicated RSVP of 55mmHG, indicating right sided heart failure. Also mitral and tricuspid regurgitation and dilated IVC. Right sided heart failure may be contributing to weakness. 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 (3) Acute blood loss anemia (ABLA): Assessment/Plan: Most likely secondary to fall 1 week ago and resulting ecchymoses. Hemoglobin remains stable today. Will continue IV fluids, recheck CBC tomorrow. (4) Fracture, ribs: Qualifiers: Encounter type: initial encounter Fracture type: closed Laterality: b ilateral Qualified Code(s): S22.43XA - Multiple fractures of ribs, bilateral, initial encounter for closed fracture Assessment/Plan: Likely secondary to fall one week ago. Patient refused afternoon dose of tylenol, denies pain. Patient worked with PT/OT today. Recommend continuing with PT/OT while inpatient, recommend patient follow up with PT when outpatient. (5) Weakness: Assessment/Plan: Etiology unclear, multiple factors contributing including bradycardia, poor intake, afib, hyponatremia, soreness from rib fractures, possible BPPV. Patient was able to see PT/OT today, was able to ambulate with walker with little assistance. PT noted decreased endurance and activity tolerance, recommended SNF v. home discharge. Patient is on 2L oxygen [place] as needed for activity like sitting up. Patient has been eating well today. ECHO indicated RSVP of 55mmHG, indicating right sided heart failure. Also mitral and tricuspid regurgitation and dilated IVC. Right sided heart failure could be contributing to weakness. Will continue PT/OT as long as patient is inpatient. Patient should follow up with cardiology outpatient. (6) Atrial fibrillation: Assessment/Plan: Patient denies symptoms of afib, but this may be contributing to patient weakness. Xarelto and metoprolol held while inpatient to improve anemia and bradycardia, last EKG indicated patient still in Afib. Echo indicated right sided heart failure, mitral and tricuspid regurgitation, and dilated IVC. Will continue to hold Xarelto and metoprolol, continue telemetry monitoring. Patient should follow up with [facility] outpatient to discuss echo and discontinuation of xarelto and metoprolol (7) Multiple falls: Assessment/Plan: Etiology unclear, multiple factors contributing including bradycardia, poor intake, afib, hyponatremia, soreness from rib fractures, possible BPPV. Patient was able to see PT/OT today, was able to ambulate with walker with little assistance. PT noted decreased endurance and activity tolerance, recommended SNF v. home discharge. Will continue PT/OT while patient is inpatient. (8) Thyroid nodule: Assessment/Plan: TSH WNL at 3.03. Patient will follow up outpatient with PCP for thyroid imaging. Current Meds Current Meds: Current Medications Generic Name Dose Route Start Last Admin Trade Name Freq PRN Reason Stop Dose Admin Acetaminophen 1,000 mg 08/15/24 22:00 08/16/24 13:37 Acetaminophen 500 Mg Tablet PO Not Given TID DEVI Atorvastatin Calcium 20 mg 08/16/24 09:00 08/16/24 08:16 Atorvastatin 10 Mg Tablet PO 20 mg DAILY DEVI Administration Levothyroxine Sodium 100 mcg 08/16/24 07:00 08/16/24 06:18 Levothyroxine 100 Mcg Tablet PO 100 mcg QDAC DEVI Administration Ondansetron HCl 4 mg 08/15/24 20:22 Ondansetron 4 Mg/2 Ml Vial IVP Q6HR PRN Nausea / Vomiting Oxycodone HCl 5 mg 08/15/24 19:40 Oxycodone 5 Mg Tablet PO Q4H PRN PAIN 5-7 Sertraline HCl 50 mg 08/16/24 09:00 08/16/24 08:17 Sertraline 50 Mg Tablet PO 50 mg DAILY DEVI Administration Sodium Chloride 10 ml 08/15/24 20:22 Sodium Chloride Flush 0.9% 10 Ml Syringe IVP PRN PRN NEEDED PER PROVIDER ORDERS Sodium Chloride 10 ml 08/16/24 01:00 08/16/24 08:17 Sodium Chloride Flush 0.9% 10 Ml Syringe IVP 10 ml 0100,0900,1700 DEIV Administration Tamsulosin HCl 0.4 mg 08/16/24 09:00 08/16/24 08:17 Tamsulosin 0.4 Mg Capsule PO 0.4 mg DAILY DEVI Administration Lab Result Lab results reviewed: Yes 08/16/24 06:18 08/16/24 16:11 Diagnostic Imaging Results Diagnostic Imaging Results: Final report reviewed Additional Planning Condition/Complexity: Stable Subjective Subjective Patient Reports: Feeling Better and Resting Comfortably Objective Vital Signs: Vital Signs - 24 hr 08/15/24 17:50 08/15/24 18:41 08/15/24 19:00 Temperature Temperature Source Pulse Rate 54 L 53 L 50 L Pulse Rate [Monitoring electrodes] Respiratory Rate 16 18 16 Blood Pressure 154/80 H 159/83 H 145/78 H Blood Pressure [Left Brachial artery] O2 Saturation 95 95 97 O2 Source Room air Room air Room air Sedation scale Pain Intensity 0 0 08/15/24 20:00 08/15/24 20:35 08/15/24 20:46 Temperature 36.7 C Temperature Source Oral Pulse Rate 44 L Pulse Rate [Monitoring electrodes] 93 Respiratory Rate 16 22 Blood Pressure 118/68 Blood Pressure [Left Brachial artery] 144/54 H O2 Saturation 92 93 O2 Source Room air Room air Sedation scale 0-Fully awake Pain Intensity 0 08/15/24 21:51 08/16/24 00:00 08/16/24 04:00 Temperature 36.5 C 36.5 C Temperature Source Oral Oral Pulse Rate Pulse Rate [Monitoring electrodes] 45 L 51 L Respiratory Rate 16 22 Blood Pressure Blood Pressure [Left Brachial artery] 155/64 H 120/66 O2 Saturation 92 92 O2 Source Room air Room air Sedation scale 1-Arouses easily 1-Arouses easily Pain Intensity 1 08/16/24 06:17 08/16/24 08:08 08/16/24 13:37 Temperature 36.5 C Temperature Source Oral Pulse Rate Pulse Rate [Monitoring electrodes] 44 L Respiratory Rate 20 Blood Pressure Blood Pressure [Left Brachial artery] 107/60 O2 Saturation 94 O2 Source Room air Sedation scale 0-Fully awake Pain Intensity 0 0 0 08/16/24 14:00 Temperature 36.6 C Temperature Source Oral Pulse Rate Pulse Rate [Monitoring electrodes] 53 L Respiratory Rate 14 Blood Pressure Blood Pressure [Left Brachial artery] 130/58 L O2 Saturation 93 O2 Source Room air Sedation scale 0-Fully awake Pain Intensity 0 Oxygen O2 Source Room air I&O (Last 24 Hrs): Intake and Output Totals x24h 08/14/24 08/15/24 08/16/24 23:59 23:59 23:59 Intake Total 50 / 50 610 / 610 Output Total 175 / 175 500 / 500 Balance -125 / -125 110 / 110 General: Alert, Oriented x3 and Cooperative HEENT: Atraumatic and PERRLA Neck: Supple Neuro: Alert, CN 2-12 Grossly Intact and Oriented Times 3 Cardiovascular: Other (2/6 murmur on exam, bradycardia) Respiratory: No respiratory distress and Breath sounds nml Abdomen: Other (significant ecchymoses present) Extremities: No edema and Other (significant ecchymoses on extremities) Results Results: Laboratory Results WBC 6.2 x10^3/uL (4.8-10.8) 08/16/24 06:18 RBC 2.93 10^6/uL (4.70-6.10) L 08/16/24 06:18 Hgb 9.9 g/dL (14.0-18.0) L 08/16/24 06:18 Hct 28.8 % (42.0-52.0) L 08/16/24 06:18 MCV 98.3 fL (80.0-94.0) H 08/16/24 06:18 MCH 33.8 pg (27.0-31.0) H 08/16/24 06:18 MCHC 34.4 g/dL (32.0-36.0) 08/16/24 06:18 RDW 16.6 % (12.0-15.0) H 08/16/24 06:18 Plt Count 199 10^3/uL (130-450) 08/16/24 06:18 MPV 9.2 fL (7.4-11.4) 08/16/24 06:18 Neut # (Auto) 4.8 10^3/uL (1.5-6.6) 08/16/24 06:18 Lymph # (Auto) 0.7 10^3/uL (1.5-3.5) L 08/16/24 06:18 [place]le # (Auto) 0.6 10^3/uL (0.0-1.0) 08/16/24 06:18 Eos # (Auto) 0.1 10^3/uL (0.0-0.7) 08/16/24 06:18 Baso # (Auto) 0.0 10^3/uL (0.0-0.1) 08/16/24 06:18 Absolute Nucleated RBC 0.00 x10^3/uL 08/16/24 06:18 Nucleated RBC % 0.0 /100WBC 08/16/24 06:18 Sodium 125 mmol/L (135-145) L 08/16/24 16:11 Potassium 4.3 mmol/L (3.5-4.5) 08/16/24 16:11 Chloride 92 mmol/L (101-111) L 08/16/24 16:11 Carbon Dioxide 28 mmol/L (21-32) 08/16/24 16:11 Anion Gap 5.0 (6-13) L 08/16/24 16:11 BUN 13 mg/dL (6-20) 08/16/24 16:11 Creatinine 0.5 mg/dL (0.6-1.3) L 08/16/24 16:11 Estimated GFR (MDRD) 157 (>89) 08/16/24 16:11 Glucose 157 mg/dL (74-104) H 08/16/24 16:11 Calcium 8.9 mg/dL (8.5-10.3) 08/16/24 16:11 Total Bilirubin 2.6 mg/dL (0.2-1.0) H 08/15/24 16:22 AST 27 IU/L (10-42) 08/15/24 16:22 ALT 19 IU/L (10-60) 08/15/24 16:22 Alkaline Phosphatase 140 IU/L (42-121) H 08/15/24 16:22 Total Protein 6.3 g/dL (6.4-8.9) L 08/15/24 16:22 Albumin 4.0 g/dL (3.2-5.5) 08/15/24 16:22 Globulin 2.3 g/dL (2.1-4.2) 08/15/24 16:22 Albumin/Globulin Ratio 1.7 (1.0-2.2) 08/15/24 16:22 TSH 3.03 uIU/mL (0.34-5.60) 08/16/24 06:18 Blood Type A POSITIVE 08/15/24 16:22 Blood Type Recheck A POSITIVE 08/15/24 16:33 Antibody Screen NEGATIVE 08/15/24 16:22 Current Medications Current Medications Current Medications: Current Medications Generic Name Dose Route Start Last Admin Trade Name Freq PRN Reason Stop Dose Admin Acetaminophen 1,000 mg 08/15/24 22:00 08/16/24 13:37 Acetaminophen 500 Mg Tablet PO Not Given TID DEVI Atorvastatin Calcium 20 mg 08/16/24 09:00 08/16/24 08:16 Atorvastatin 10 Mg Tablet PO 20 mg DAILY DEVI Administration Levothyroxine Sodium 100 mcg 08/16/24 07:00 08/16/24 06:18 Levothyroxine 100 Mcg Tablet PO 100 mcg QDAC DEVI Administration Ondansetron HCl 4 mg 08/15/24 20:22 Ondansetron 4 Mg/2 Ml Vial IVP Q6HR PRN Nausea / Vomiting Oxycodone HCl 5 mg 08/15/24 19:40 Oxycodone 5 Mg Tablet PO Q4H PRN PAIN 5-7 Sertraline HCl 50 mg 08/16/24 09:00 08/16/24 08:17 Sertraline 50 Mg Tablet PO 50 mg DAILY DEVI Administration Sodium Chloride 10 ml 08/15/24 20:22 Sodium Chloride Flush 0.9% 10 Ml Syringe IVP PRN PRN NEEDED PER PROVIDER ORDERS Sodium Chloride 10 ml 08/16/24 01:00 08/16/24 08:17 Sodium Chloride Flush 0.9% 10 Ml Syringe IVP 10 ml 0100,0900,1700 DEVI Administration Tamsulosin HCl 0.4 mg 08/16/24 09:00 08/16/24 08:17 Tamsulosin 0.4 Mg Capsule PO 0.4 mg DAILY DEVI Administration
[2024-08-16] MEDS: polyethylene glycoL 3350 17 GM PACKET PO SCH (21:17)
[2024-08-16] MEDS: SODIUM CHLORIDE 1 GM TABLET PO SCH (22:02)
[2024-08-17 04:48] LABS: BASOPHILS % (AUTO) 0.4 %; EOSINOPHILS # (AUTO) 0.1 10^3/uL (0.0-0.7); EOSINOPHILS % (AUTO) 1.3 %; HCT - HEMATOCRIT 29.7 % (42.0-52.0); HGB - HEMOGLOBIN 10.1 g/dL (14.0-18.0); LYMPHOCYTES # (AUTO) 0.8 10^3/uL (1.5-3.5); LYMPHOCYTES % (AUTO) 12.3 %; MEAN CORPUSCULAR HEMOGLOBIN 33.8 pg (27.0-31.0); MEAN CORPUSCULAR VOLUME 99.3 fL (80.0-94.0); MEAN PLATELET VOLUME 9.5 fL (7.4-11.4); MONOCYTES # (AUTO) 0.5 10^3/uL (0.0-1.0); MONOCYTES % (AUTO) 7.6 %; NEUTROPHILS # (AUTO) 5.3 10^3/uL (1.5-6.6); PLT - PLATELET COUNT 202 10^3/uL (130-450); RED BLOOD COUNT 2.99 10^6/uL (4.70-6.10); RED CELL DISTRIBUTION WIDTH 16.9 % (12.0-15.0); WHITE BLOOD COUNT 6.9 x10^3/uL (4.8-10.8)
[2024-08-17 05:29] LABS: CALCIUM 8.6 mg/dL (8.5-10.3); CREATININE 0.4 mg/dL (0.6-1.3); POTASSIUM 4.1 mmol/L (3.5-4.5)
[2024-08-17] MEDS: SODIUM CHLORIDE 0.9% 1,000 ML IV SCH (08:28)
[2024-08-17] MEDS ORDERED: polyethylene glycoL 3350 17 GM PACKET PO SCH (09:00)
--- NOTE | 2024-08-17 09:46 | PHARMACY PROGRESS NOTE ---
Best Possible Medication History Admit Date and Time: 08/15/241939 Home Medications Medication Instructions Recorded Confirmed Type atorvastatin 20 mg tablet 20 mg PO DAILY 08/02/18 08/17/24 History diazepam 5 mg tablet 5 mg PO PRN 08/02/18 08/16/24 History levothyroxine 100 mcg tablet 1 tab PO DAILY 08/02/18 08/16/24 History metoprolol tartrate 50 mg tablet 1 tab PO DAILY 08/02/18 08/16/24 History tamsulosin 0.4 mg capsule 0.4 mg PO ONCE 08/02/18 08/16/24 History albuterol sulfate 90 mcg/actuation 1 - 2 puff inhalation Q4HR PRN 08/03/19 08/16/24 Rx aerosol inhaler (Ventolin HFA) Shortness Of Air/Wheezing ##1 finasteride 5 mg tablet 5 mg PO DAILY 08/16/24 08/16/24 History rivaroxaban 20 mg tablet (Xarelto) 20 mg PO DAILY 08/16/24 08/16/24 History sertraline 100 mg tablet 100 mg PO DAILY 08/16/24 08/16/24 History Processed by: Pharmacy Medications reviewed in ED?: No Medication History completed: Yes Patient Interview: Pt unable to participate Secondary Source(s): Pharmacy records and Insurance records [facility] Statement: Per [facility] insurance records and T fax to Wilian Gore. As the person ultimately responsible for medication therapy, providers are able to order a medication from an existing home medication list in [facility] via the "Reconcile Routine" prior to Confirmation of that medication by customer support associate. Such practice is discouraged except when the physician, in their clinical judgment, deems that a medical need exists for a medication without regard to previous use.
--- NOTE | 2024-08-17 13:20 | PROVIDER PROGRESS NOTE ---
<Statement entered by Carter Lubin MD - 08/17/24 17:30> Have personally seen and examined the patient along with the PAManjitC. I agree with the assessment and plan with the addition that after administering NS at 83 mL/h patient's sodium was rechecked this afternoon and resulted at 128. Will decrease NS to 50 mL/h and repeat in the a.m. Assessment/Plan Problem List (1) Acute hyponatremia: Assessment/Plan: Sodium staying at 125, switched to sodium chloride IV fluids this morning. Continue sodium chloride IV fluids, recheck BMP this afternoon. (2) Bradycardia: Assessment/Plan: Patient pulse ranged from 46 to 67 this morning. Echocardiogram indicated right sided heart failure. Patient is life long runner, likely contributing to bradycardia. Continue to hold metoprolol. Continue telemetry. Patient will follow up with cardiology outpatient. (3) Acute blood loss anemia (ABLA): Assessment/Plan: Likely blood sequestering from fall one week ago and subsequent ecchymoses. Hemoglobin stable around 10. MCV is elevated, indicating possible folate or b12 deficiency anemia. Recommend patient patient get folate and B12 assessed by PCP. Anemia stable. (4) Fracture, ribs: Qualifiers: Encounter type: initial encounter Fracture type: closed Laterality: b ilateral Qualified Code(s): S22.43XA - Multiple fractures of ribs, bilateral, initial encounter for closed fracture Assessment/Plan: Stable. Patient has refused tylenol and has not needed prescribed oxycodone, denies pain. Patient will see PT/OT tomorrow, they are not available today. (5) Weakness: Assessment/Plan: Multiple contributory factors including poor intake prior to admit, bradycardia, hyponatremia, anemia, possible BPPV, atrial fibrillation, right sided heart failure, shortness of breath secondary to asthma and right sided heart failure. Patient is able to get to bathroom using walker and minimal assistance, PT/OT saw him yesterday and recommended SNF v. home with assistance. Patient will see PT/OT tomorrow for evaluation, likely discharge home tomorrow. Patient will likely need home health and to work up underlying causes with PCP and cardiology. (6) Atrial fibrillation: Assessment/Plan: Chronic afib, Xarelto and metoprolol held while patient is inpatient. Potentially contributing to weakness and falls. Patient will follow up with outpatient cardiology. Continue monitoring analyst. (7) Multiple falls: Assessment/Plan: Likely multiple factors contributing including hyponatremia, poor intake, bradycardia, potential BPPV, right sided heart failure, shortness of breath from right sided heart failure and asthma. Patient had appt scheduled with [facility] dizziness and balance. Patient is ambulating with walker and minimal assistance, PT/OT evaluated him and recommended discharge to SNF or home health. 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 PT/OT will evaluate tomorrow, patient will likely discharge to home. Current Meds Current Meds: Current Medications Generic Name Dose Route Start Last Admin Trade Name Freq PRN Reason Stop Dose Admin Acetaminophen 1,000 mg 08/15/24 22:00 08/17/24 06:52 Acetaminophen 500 Mg Tablet PO 1,000 mg TID DEVI Administration Atorvastatin Calcium 20 mg 08/16/24 09:00 08/17/24 08:22 Atorvastatin 10 Mg Tablet PO 20 mg DAILY DEVI Administration Sodium Chloride 1,000 mls @ 83.333 mls/hr 08/17/24 09:00 08/17/24 08:28 Normal Saline 0.9% IV 83.33 mls/hr .Q12H DEVI Administration Levothyroxine Sodium 100 mcg 08/16/24 07:00 08/17/24 06:52 Levothyroxine 100 Mcg Tablet PO 100 mcg QDAC DEVI Administration Ondansetron HCl 4 mg 08/15/24 20:22 Ondansetron 4 Mg/2 Ml Vial IVP Q6HR PRN Nausea / Vomiting Oxycodone HCl 5 mg 08/15/24 19:40 Oxycodone 5 Mg Tablet PO Q4H PRN PAIN 5-7 Polyethylene Glycol 17 gm 08/16/24 21:00 08/17/24 08:21 Polyethylene Glycol 3350 17 Gm Packet PO 17 gm DAILY DEVI Administration Sertraline HCl 50 mg 08/16/24 09:00 08/17/24 08:22 Sertraline 50 Mg Tablet PO 50 mg DAILY DEVI Administration Sodium Chloride 10 ml 08/15/24 20:22 Sodium Chloride Flush 0.9% 10 Ml Syringe IVP PRN PRN NEEDED PER PROVIDER ORDERS Sodium Chloride 10 ml 08/16/24 01:00 08/17/24 08:28 Sodium Chloride Flush 0.9% 10 Ml Syringe IVP 10 ml 0100,0900,1700 DEVI Administration Sodium Chloride 1 gm 08/16/24 22:00 08/17/24 06:52 Sodium Chloride 1 Gm Tablet PO 1 gm TID DEVI Administration Tamsulosin HCl 0.4 mg 08/16/24 09:00 08/17/24 08:21 Tamsulosin 0.4 Mg Capsule PO 0.4 mg DAILY DEVI Administration Lab Result 08/17/24 04:27 08/17/24 04:27 Additional Planning Condition/Complexity: Stable Subjective Subjective Patient Reports: Feeling Better and Resting Comfortably Nursing Reports: Other (Patient sitting up in a chair without oxygen. States he was able to ambulate to bathroom this morning using walker and with minimal assistance. ) Objective Vital Signs: Vital Signs - 24 hr 08/16/24 13:37 08/16/24 14:00 08/16/24 20:00 Temperature 36.6 C Temperature Source Oral Pulse Rate [Brachial] Pulse Rate [Monitoring electrodes] 53 L 63 Respiratory Rate 14 21 Blood Pressure [Left Brachial artery] 130/58 L 133/66 H Blood Pressure [Right Brachial artery] O2 Saturation 93 98 O2 Source Room air Room air Sedation scale 0-Fully awake 0-Fully awake Pain Intensity 0 0 08/16/24 21:17 08/17/24 00:03 08/17/24 04:10 Temperature 36.5 C 36.5 C Temperature Source Oral Oral Pulse Rate [Brachial] Pulse Rate [Monitoring electrodes] 59 L 53 L Respiratory Rate 19 24 Blood Pressure [Left Brachial artery] 158/78 H Blood Pressure [Right Brachial artery] 145/76 H O2 Saturation 95 92 O2 Source Room air Room air Sedation scale 1-Arouses easily 0-Fully awake Pain Intensity 0 0 0 08/17/24 06:52 08/17/24 07:54 08/17/24 08:13 Temperature 36.5 C 36.6 C Temperature Source Oral Oral Pulse Rate [Brachial] Pulse Rate [Monitoring electrodes] 46 L 67 Respiratory Rate 21 20 Blood Pressure [Left Brachial artery] Blood Pressure [Right Brachial artery] 131/77 H 156/78 H O2 Saturation 97 94 O2 Source Room air Room air Sedation scale 0-Fully awake 0-Fully awake Pain Intensity 0 0 0 08/17/24 11:38 Temperature 36.6 C Temperature Source Temporal Artery Scan Pulse Rate [Brachial] 60 Pulse Rate [Monitoring electrodes] Respiratory Rate 20 Blood Pressure [Left Brachial artery] Blood Pressure [Right Brachial artery] 148/65 H O2 Saturation 93 O2 Source Room air Sedation scale 0-Fully awake Pain Intensity Oxygen O2 Source Room air I&O (Last 24 Hrs): Intake and Output Totals x24h 08/15/24 08/16/24 08/17/24 23:59 23:59 23:59 Intake Total 50 / 50 730 / 730 810 / 810 Output Total 175 / 175 500 / 500 1625 / 1625 Balance -125 / -125 230 / 230 -815 / -815 General: Alert, Oriented x3, Cooperative and No acute distress HEENT: Atraumatic, PERRLA and Mucous membr. moist/pink Neck: Supple Neuro: Alert, CN 2-12 Grossly Intact and Oriented Times 3 Cardiovascular: Other (bradycardic, afib, 2/6 murmur, no rubs or gallops) Respiratory: Chest non-tender, No respiratory distress, Breath sounds nml and Other (no wheezes rhonchi or rales) Extremities: No edema Comments/Notes: significant ecchymoses on extremities, back, abdomen Results Results: Laboratory Results WBC 6.9 x10^3/uL (4.8-10.8) 08/17/24 04:27 RBC 2.99 10^6/uL (4.70-6.10) L 08/17/24 04:27 Hgb 10.1 g/dL (14.0-18.0) L 08/17/24 04:27 Hct 29.7 % (42.0-52.0) L 08/17/24 04:27 MCV 99.3 fL (80.0-94.0) H 08/17/24 04:27 MCH 33.8 pg (27.0-31.0) H 08/17/24 04:27 MCHC 34.0 g/dL (32.0-36.0) 08/17/24 04:27 RDW 16.9 % (12.0-15.0) H 08/17/24 04:27 Plt Count 202 10^3/uL (130-450) 08/17/24 04:27 MPV 9.5 fL (7.4-11.4) 08/17/24 04:27 Neut # (Auto) 5.3 10^3/uL (1.5-6.6) 08/17/24 04:27 Lymph # (Auto) 0.8 10^3/uL (1.5-3.5) L 08/17/24 04:27 [place] # (Auto) 0.5 10^3/uL (0.0-1.0) 08/17/24 04:27 Eos # (Auto) 0.1 10^3/uL (0.0-0.7) 08/17/24 04:27 Baso # (Auto) 0.0 10^3/uL (0.0-0.1) 08/17/24 04:27 Absolute Nucleated RBC 0.00 x10^3/uL 08/17/24 04:27 Nucleated RBC % 0.0 /100WBC 08/17/24 04:27 Sodium 125 mmol/L (135-145) L 08/17/24 04:27 Potassium 4.1 mmol/L (3.5-4.5) 08/17/24 04:27 Chloride 94 mmol/L (101-111) L 08/17/24 04:27 Carbon Dioxide 26 mmol/L (21-32) 08/17/24 04:27 Anion Gap 5.0 (6-13) L 08/17/24 04:27 BUN 13 mg/dL (6-20) 08/17/24 04:27 Creatinine 0.4 mg/dL (0.6-1.3) L 08/17/24 04:27 Estimated GFR (MDRD) 203 (>89) 08/17/24 04:27 Glucose 103 mg/dL (74-104) 08/17/24 04:27 Calcium 8.6 mg/dL (8.5-10.3) 08/17/24 04:27 Total Bilirubin 2.6 mg/dL (0.2-1.0) H 08/15/24 16:22 AST 27 IU/L (10-42) 08/15/24 16:22 ALT 19 IU/L (10-60) 08/15/24 16:22 Alkaline Phosphatase 140 IU/L (42-121) H 08/15/24 16:22 Total Protein 6.3 g/dL (6.4-8.9) L 08/15/24 16:22 Albumin 4.0 g/dL (3.2-5.5) 08/15/24 16:22 Globulin 2.3 g/dL (2.1-4.2) 08/15/24 16:22 Albumin/Globulin Ratio 1.7 (1.0-2.2) 08/15/24 16:22 TSH 3.03 uIU/mL (0.34-5.60) 08/16/24 06:18 Blood Type A POSITIVE 08/15/24 16:22 Blood Type Recheck A POSITIVE 08/15/24 16:33 Antibody Screen NEGATIVE 08/15/24 16:22 Current Medications Current Medications Current Medications: Current Medications Generic Name Dose Route Start Last Admin Trade Name Freq PRN Reason Stop Dose Admin Acetaminophen 1,000 mg 08/15/24 22:00 08/17/24 06:52 Acetaminophen 500 Mg Tablet PO 1,000 mg TID DEVI Administration Atorvastatin Calcium 20 mg 08/16/24 09:00 08/17/24 08:22 Atorvastatin 10 Mg Tablet PO 20 mg DAILY DEVI Administration Sodium Chloride 1,000 mls @ 83.333 mls/hr 08/17/24 09:00 08/17/24 08:28 Normal Saline 0.9% IV 83.33 mls/hr .Q12H DEVI Administration Levothyroxine Sodium 100 mcg 08/16/24 07:00 08/17/24 06:52 Levothyroxine 100 Mcg Tablet PO 100 mcg QDAC DEVI Administration Ondansetron HCl 4 mg 08/15/24 20:22 Ondansetron 4 Mg/2 Ml Vial IVP Q6HR PRN Nausea / Vomiting Oxycodone HCl 5 mg 08/15/24 19:40 Oxycodone 5 Mg Tablet PO Q4H PRN PAIN 5-7 Polyethylene Glycol 17 gm 08/16/24 21:00 08/17/24 08:21 Polyethylene Glycol 3350 17 Gm Packet PO 17 gm DAILY DEVI Administration Sertraline HCl 50 mg 08/16/24 09:00 08/17/24 08:22 Sertraline 50 Mg Tablet PO 50 mg DAILY DEVI Administration Sodium Chloride 10 ml 08/15/24 20:22 Sodium Chloride Flush 0.9% 10 Ml Syringe IVP PRN PRN NEEDED PER PROVIDER ORDERS Sodium Chloride 10 ml 08/16/24 01:00 08/17/24 08:28 Sodium Chloride Flush 0.9% 10 Ml Syringe IVP 10 ml 0100,0900,1700 DEVI Administration Sodium Chloride 1 gm 08/16/24 22:00 08/17/24 06:52 Sodium Chloride 1 Gm Tablet PO 1 gm TID DEVI Administration Tamsulosin HCl 0.4 mg 08/16/24 09:00 08/17/24 08:21 Tamsulosin 0.4 Mg Capsule PO 0.4 mg DAILY DEVI Administration
[2024-08-17 14:19] LABS: CALCIUM 8.8 mg/dL (8.5-10.3); CREATININE 0.5 mg/dL (0.6-1.3); POTASSIUM 4.5 mmol/L (3.5-4.5)
[2024-08-17 23:42] VITALS: TEMP 97.7
[2024-08-18 05:40] LABS: BASOPHILS % (AUTO) 0.3 %; EOSINOPHILS # (AUTO) 0.1 10^3/uL (0.0-0.7); EOSINOPHILS % (AUTO) 0.7 %; HCT - HEMATOCRIT 32.9 % (42.0-52.0); HGB - HEMOGLOBIN 10.9 g/dL (14.0-18.0); LYMPHOCYTES # (AUTO) 0.9 10^3/uL (1.5-3.5); LYMPHOCYTES % (AUTO) 6.4 %; MEAN CORPUSCULAR HEMOGLOBIN 32.8 pg (27.0-31.0); MEAN CORPUSCULAR HGB CONC 33.1 g/dL (32.0-36.0); MEAN CORPUSCULAR VOLUME 99.1 fL (80.0-94.0); MEAN PLATELET VOLUME 9.5 fL (7.4-11.4); MONOCYTES # (AUTO) 0.7 10^3/uL (0.0-1.0); MONOCYTES % (AUTO) 4.9 %; NEUTROPHILS # (AUTO) 11.7 10^3/uL (1.5-6.6); NEUTROPHILS % (AUTO) 87.3 %; PLT - PLATELET COUNT 223 10^3/uL (130-450); RED BLOOD COUNT 3.32 10^6/uL (4.70-6.10); RED CELL DISTRIBUTION WIDTH 16.5 % (12.0-15.0); WHITE BLOOD COUNT 13.4 x10^3/uL (4.8-10.8)
[2024-08-18 05:58] LABS: CALCIUM 8.7 mg/dL (8.5-10.3); CREATININE 0.3 mg/dL (0.6-1.3); POTASSIUM 4.1 mmol/L (3.5-4.5)
[2024-08-18] MEDS: APIXABAN 5 MG TABLET PO SCH (08:11)
[2024-08-18] MEDS: FINASTERIDE 5 MG TABLET PO SCH (08:11)
[2024-08-18] MEDS: SERTRALINE 50 MG TABLET PO SCH (08:11)
[2024-08-18 08:31] LABS: BILIRUBIN,URINE NEGATIVE (NEGATIVE); GLUCOSE, URINE (UA) NEGATIVE (NEGATIVE); KETONES,URINE (UA) NEGATIVE (NEGATIVE); LEUKOCYTE ESTERASE, URINE SMALL (NEGATIVE); NITRITE,URINE NEGATIVE (NEGATIVE); OCCULT BLOOD,URINE TRACE-INTA (NEGATIVE); PH,URINE 7.5 PH (5.0-7.5); PROTEIN,URINE NEGATIVE (NEGATIVE); UROBILINOGEN,URINE 4 E.U./dL (NORMAL)
[2024-08-18 08:45] LABS: BACTERIA,URINE Moderate /HPF (None Seen); CLARITY,URINE SL. CLOUDY (CLEAR); RBC,URINE 0-5 /HPF (0-5); SQUAMOUS EPITHELIAL CELL,UR RARE Squamous (<= Few); WBC CLUMPS,URINE PRESENT; WBC,URINE >25 /HPF (0-3)
--- NOTE | 2024-08-18 12:53 | Discharge Summary ---
"Discharge Summary Admit Date: 08/15/24 Discharge Date: 08/18/24 Discharging Provider: Dr. Carter Lubin MD Primary Care Provider: Dr. Mcguire Code Status: Do Not Attempt Resuscitation DIAGNOSES Discharge Diagnoses with Status of Each Condition: (1)Acute hyponatremia - improved, stable (2) Bradycardia: Chronic, stable (3) Acute blood loss anemia (ABLA): subacute, Stable (4) Fracture, ribs: subacute, stable (5) Weakness: improved, will have outpatient PT (6) Atrial fibrillation: chronic, stable, followed by PCP (7) Multiple falls: balance improved, f/u with PT HPI History of Present Illness: Patient is an 89 year old male with history of HLD, Afib, mild persistent asthma, anxiety/depression, hypothyroidism, BPH that presents for weakness and multiple falls. He was seen for fall with head abrasion 1 week ago, head, neck, and thoracic spine CT were unremarkable. Prior to fall, patient was walking with cane, used walker after fall. Since his fall, he has had weakness, malaise, fatigue, rib pain, extensive bruising, decreased appetite, feet swelling, and multiple falls. Denies hitting his head on any of these falls. Patient is on Xarelto for his afib. He notes increased shortness of breath in the last couple weeks, he states he has increased albuterol use from once daily to twice daily. Patient has had balance issues for the past month and he has an appointment with [facility] balance. He describes vertigo when turning his head. He feels his balance has been worse this past week. He states his heart rate often runs low, in the 40s. Patient denies headaches, tinnitus, change in vision, palpitations, chest pain, diarrhea, hematochezia. Patient sodium was 122 on admission, was administered sodium chloride 3% hypertonic IV solution in ER. ER also ordered CT A&P, CT chest, CT head, Cervical spine CT. Patient PCP is Dr. Mcguire at [facility]. CONSULTS | PROCEDURES Consultations: None Procedures: Chest CT - Acute, mildly displaced fractures involving the lateral right 10th rib as well as the posterior left 7th and 8th ribs. No pneumothorax. Small bilateral pleural effusions. Prominent mediastinal lymph nodes and scattered right upper and middle lobe pulmonary nodules Head CT - no acute processes Cervical spine CT - unremarkable except for multiple thyroid nodules abdomen/pelvis CT - cardiomegaly, mild pleural effusions, steatosis HOSPITAL COURSE Hospital Course: Patient is a 89 year old male with history of afib admitted for weakness, hyponatremia, mulitple falls, and fractured ribs following large fall 1 week prior to admission. #Acute hyponatremia - Na 122 on arrival - Thought to be due to decreased PO intake, meds not likely (Possibly Zoloft?) - Sodium improved to 127 - Will send Rx for Na tabs 1000 TID (pending repeat outpt labs, can d/c per PCP) - Would recommend BMP recheck outpt w/ PCP #Bradycardia: - Monitor read HR in 40's in ICU bed, however, once moved to Med/Surg, HR stabilized in 60's (pt reported discrepancy between when he check his own pulse in ICU, at which point monitor read 40's, but pt captured 60's manually. Did not notify us until after the room change). Therefore, bradycardia in 40's may have been erroneous - Regardless, given pt's age, and BP at goal, w/ hx of falls, would recc stopping Metoprolol (or other Beta-blockers) despite his history of A-fib - Discontinued metoprolol -Echo with severe RV dilatation with reduced systolic function (sleep study?) -Patient needs to re-establish with cardiology #Acute blood loss anemia (ABLA): -Likely blood sequestering from fall one week ago and subsequent ecchymoses. -MCV is elevated, recommend testing folate or b12 deficiency anemia. -Would repeat CBC in 1 week with PCP #Fracture, ribs: - Fractures involving the lateral right 10th rib as well as the posterior left 7th and 8th ribs - Patient denies pain -Evaluated by PT, recommend outpatient PT follow up #Weakness, multiple falls: -Multiple contributing factors including anemia, bradycardia, possible BPPV (pt has pre-admit apt with [facility]hab clinic), afib, right sided heart failure, hyponatremia -Improved during inpatient stay, patient able to walk with walker without needing assistance -Recommend BMP and CBC recheck -Recommend PT follow up -Patient has follow up scheduled with [facility] #Atrial fibrillation: -Metoprolol discontinued due to bradycardia as well as BP at goal (Patient initially hypotensive however in the last 48 hours of hospital admission his BP ranged from 130s systolic to 160s systolic and 50s to 80s diastolic) -Initially Xarelto was held due to the patient's frequent falls and significant ecchymosis leading to blood sequestration -Discussed watchman procedure Given patient's history of frequent falls, and patient and family are quite interested Given the need for anticoagulation prior to watchman, we have restarted the Xarelto at discharge and provide the patient with a list of [employer] Supervisor who are able to perform Watchman procedure (He will likely need a new referral to cardiology given his last appointment was 3 years ago) #UTI -WBC increased, UA positive for UTI (UA done 08/18/2024, culture results pending at the time of discharge) -Asymptomatic, afebrile -Patient placed on Bactrim -Recommend repeat CBC #pulmonary nodules -Chest CT indicated Prominent mediastinal lymph nodes and scattered right upper and middle lobe pulmonary nodules -Recommend follow-up chest CT in 3 months to document stability. #thyroid nodules -Prominent, heterogeneous thyroid gland with ill-defined nodules and calcifications in the left thyroid lobe. -TSH WNL -Recommend dedicated outpatient thyroid ultrasound for further characterization. ALLERGIES Allergies Allergy/AdvReac Type Severity Reaction Status Date / Time No Known Drug Allergies Allergy Verified 08/15/24 16:20 MEDICATIONS Ambulatory Orders Medication Instructions Recorded Confirmed atorvastatin 20 mg tablet 20 mg PO DAILY 08/02/18 08/17/24 diazepam 5 mg tablet 5 mg PO PRN 08/02/18 08/16/24 levothyroxine 100 mcg tablet 1 tab PO DAILY 08/02/18 08/16/24 metoprolol tartrate 50 mg tablet 1 tab PO DAILY 08/02/18 08/16/24 tamsulosin 0.4 mg capsule 0.4 mg PO ONCE 08/02/18 08/16/24 albuterol sulfate 90 mcg/actuation 1 - 2 puff inhalation Q4HR PRN 08/03/19 08/16/24 aerosol inhaler (Ventolin HFA) Shortness Of Air/Wheezing ##1 finasteride 5 mg tablet 5 mg PO DAILY 08/16/24 08/16/24 rivaroxaban 20 mg tablet (Xarelto) 20 mg PO DAILY 08/16/24 08/16/24 sertraline 100 mg tablet 100 mg PO DAILY 08/16/24 08/16/24 sodium chloride 1,000 mg soluble 1,000 mg PO TID Low Sodium #90 tabs 08/18/24 tablet sulfamethoxazole 800 1 tab PO BID UTI 7 days #14 tabs 08/18/24 mg-trimethoprim 160 mg tablet PHYSICAL EXAM AT DISCHARGE General Appearance: positive No acute distress and Alert Eyes Bilateral: positive Normal inspection, PERRL and Conjunctivae nml Neck: positive Nml inspection Respiratory: positive Chest non-tender, No respiratory distress and Breath sounds nml; negative Wheezes, Rales or Rhonchi Cardiovascular: positive No murmur, No gallop and Irregularly irregular; negative Regular rate & rhythm (bradycardia) Skin: positive Warm, Dry and Other (significant ecchymoses) Extremities: positive Non-tender, Full ROM, Nml appearance and No pedal edema Neurologic/Psychiatric: positive Oriented x3, CN's nml (2-12), Motor nml and Mood/affect nml LABS 08/18/24 05:17 08/18/24 05:17 DIAGNOSTIC IMAGING Diagnostic Imaging Results: Final report reviewed Discharge Plan Discharge Patient Disposition: Home, Self Care Condition: Serious Medically Cleared Date:: 08/18/24 Prescriptions: New sodium chloride 1,000 mg Tablet,Soluble 1,000 mg PO TID Qty: 90 0RF sulfamethoxazole-trimethoprim 800-160 mg Tablet 1 tab PO BID 7 Days Qty: 14 0RF Continued atorvastatin 20 MG tablet 20 mg PO DAILY levothyroxine 100 MCG tablet 1 tab PO DAILY tamsulosin 0.4 MG capsule 0.4 mg PO ONCE albuterol sulfate [Ventolin HFA] 200 PUFFS/18 GM HFA aerosol inhaler 1 - 2 puff inhalation Q4HR PRN (Reason: Shortness Of Air/Wheezing) Qty: 1 0RF sertraline 100 mg tablet 100 mg PO DAILY Patient Comments: take 1 tablet by mouth once daily finasteride 5 mg tablet 5 mg PO DAILY Patient Comments: take 1 tablet by mouth once daily Xarelto 20 mg tablet 20 mg PO DAILY No Action metoprolol tartrate 50 MG tablet 1 tab PO DAILY diazepam 5 MG tablet 5 mg PO PRN Activity Restrictions: Activity as Tolerated Diet: Regular Health Concerns: Mr. Turk, here are some of the mandel items to review from your hospital admission: * Your overall weakness brought you to the emergency department and the evaluation revealed a few findings that may have contributed to this * One of these is the low sodium level which was 122 on the day that you came in. The low sodium may have been related to decreased appetite, possibly related to the falls and bruising that you have had recently. * In addition, because of the significant amount of internal bleeding and bruising. Your hemoglobin (which is the measure of your blood) dropped below normal however it has improved. I am recommending your primary physician recheck this when you have a follow-up hopefully within the next week. * Also, because metoprolol can be known to cause balance difficulty in elderly patients, it would be worth considering not taking this medication anymore. And because your blood pressure and heart rate have been within the normal range over the last 48 hours of your hospital stay, I am recommending you stop this for now. Please make sure you discuss this with your primary physician and your hydroponics grower to make sure everyone is on the same page. They may want to monitor your blood pressure and heart rate a little longer, and at some point depending on the numbers, they may recommend restarting it. * As for the blood thinner Xarelto, although you have had some significant bruising with your falls, which is a complication from taking blood thinners, I am going to recommend you continue taking this so that you might be a candidate for the Watchman device which we discussed. * Also, on your last day before discharge you had a small increase in your WBC, which is a part of the blood test that can indicate infection. This led to me checking your urine which looks like you have a urinary tract infection. For this, I have sent a prescription for an antibiotic called Bactrim. You received the first dose of this antibiotic in the hospital, and I would like you to take the next dose tonight and continue taking it for a total of 7 days. * I am glad you have an appointment with the balance and therapy center, and given that you did well with the physical therapist in the hospital, I am confident that they will help you continue to improve and allow you to return to your previous activities. Print Language: Lithuanian Patient Instructions: Anticoagulants, Hyponatremia Dc, Atrial Fibrillation Stand Alone Forms: PCP List Follow-up Care: Todd Mcguire MD [Primary Care Provider] -"
[2024-08-18] MEDS: SULFAMETH/TRIMETH DS 800/160 MG TABLET PO SCH (13:14)
[2024-08-18 13:31] VITALS: BP 136/57; O2SAT 91
== END 2024-08-18 13:45 | disposition home or self-care (01) | DRG 641 ==
LOC: ED 15:43 → ICU 19:40 → MS2 08-17 10:21
PROVIDERS: ADMIT Physician Assistant Medical; ATTEND Physician Assistant Medical
DX: Z87.891 Personal history of nicotine dependence; E78.5 Hyperlipidemia, unspecified; I48.91 Unspecified atrial fibrillation; R00.1 Bradycardia, unspecified; S22.43XA Multiple fractures of ribs, bilateral, initial encounter for closed fracture; J45.30 Mild persistent asthma, uncomplicated; W19.XXXA Unspecified fall, initial encounter; I50.810 Right heart failure, unspecified; E87.1 Hypo-osmolality and hyponatremia; F32.A Depression, unspecified; F41.9 Anxiety disorder, unspecified; Z79.890 Hormone replacement therapy; N39.0 Urinary tract infection, site not specified; Z79.899 Other long term (current) drug therapy; I45.10 Unspecified right bundle-branch block; D62 Acute posthemorrhagic anemia; R91.8 Other nonspecific abnormal finding of lung field; Z79.01 Long term (current) use of anticoagulants; W01.0XXA Fall on same level from slipping, tripping and stumbling without subsequent striking against object, initial encounter; R59.0 Localized enlarged lymph nodes; E04.2 Nontoxic multinodular goiter; I48.20 Chronic atrial fibrillation, unspecified